=== PATIENT | male | born 1950 | race Caucasian/White ===

== ENCOUNTER 2020-10-28 09:39 | Inpatient (IN) ==
[2020-10-28] MEDS ORDERED: ASPIRIN CHEW 324 MG PO STA (09:44)
[2020-10-28 10:18] LABS: Basophils # (auto) 0.01 K/uL (0-0.2); Basophils % (auto) 0.1 %; Eosinophils # (auto) 0.01 K/uL (0-0.5); Eosinophils % (auto) 0.1 %; Hematocrit (blood only) 46.3 % (42-52); Hemoglobin 16.3 g/dL (14.0-18.0); Immature Granulocytes % (auto) 0.8 %; Lymphocytes # (auto) 1.14 K/uL (1.2-3.4); Mean Corpuscular Hgb Conc 35.2 g/dL (32-36); Mean Corpuscular Volume 96.5 fL (80-100); Mean Platelet Volume 11.5 fL (7.4-10.4); Monocytes # (auto) 0.39 K/uL (0.11-0.59); Monocytes % (auto) 3.1 %; Neutrophils # (auto) 11.07 K/uL (1.4-6.5); Neutrophils % (auto) 86.9 %; Nucleated RBC # (auto) 0.03 K/uL (0-0); Nucleated RBC % (auto) 0.2 %; Platelet Count 187 K/uL (130-400); RDW Coefficient of Variation 15.1 % (11.5-14.5); White Blood Count 12.72 K/uL (4.8-10.8)
[2020-10-28 10:21] LABS: Base Excess VBG 5.8 mEq/L; Oxygen Saturation VBG 70.4 %; pH VBG 7.45 (7.36-7.41)
[2020-10-28 10:36] LABS: BUN Creatinine Ratio 21.1 (10-20); Calcium 8.3 mg/dl (8.5-10.1); Creatinine Clr Calc Pharmacy 44.6 ml/min; Est GFR (African American) 54.3; Est GFR (Non-African American) 46.9; Potassium 3.7 mmol/L (3.5-5.1)
[2020-10-28 10:43] LABS: Troponin I 0.058 ng/ml (0-0.045)
--- NOTE | 2020-10-28 10:46 | XRay Report ---
XR chest 1V portable CLINICAL HISTORY: Chest pain. COMPARISON STUDY: No previous studies for comparison. FINDINGS: A left pacer/AICD is in place. Cardiac size is at the upper limits of normal. There is no p neumothorax. Small right pleural effusion is noted. Right basilar airspace opacity is present. There is pulmonary vascular congestion with suspected mild pulmonary edema. Old left rib fractures are pres ent. IMPRESSION: 1. Mild interstitial pulmonary edema. 2. Small right pleural effusion with right basilar opacity which could reflect pneumonia or atelectas is. Radiographic follow up to ensure resolution is recommended. ACT 112: Negative or not required by law. Electronically signed by: Jeff Dennis M.D. 10/28/2020 10:45 AM
[2020-10-28 12:20] LABS: Influenza A virus by PCR Negative (Neg); Influenza B virus by PCR Negative (Neg); RSV by PCR Negative (Neg); SARS CoV2 RNA(COVID-19) InHosp NEGATIVE (Negative)
--- NOTE | 2020-10-28 12:44 | History & Physical Report ---
Date of Service October 28, 2020 Assessment & Plan (1) Acute on chronic systolic heart failure: By report he has depressed EF but I cannot find any echo in the EMR. Echo ordered for am. Received IV lasix 80mg IV x 1 and 40mg PO lasix x 1 at [facility] prior to transfer here. Has had COPIOUS diuresis since then. Will start lasix 40mg IV BID with first dose at 1700 today. Daily BMP. Check dig level. Cont BB - Dr Hernandez's note from September suggested changing metoprolol tartrate to succinate -- can do that during this stay. Cont RODRIGUEZ. Cont aldactone. (2) Atrial fibrillation: Is in NSR at presentation. Dr Hernandez's note from September advised lowering amiodarone to 100mg from 200mg - will change that this admission. Cont warfarin with daily INR. Cont dig - check level. Cont metoprolol. (3) Ischemic cardiomyopathy: h/o acute MIs on at least 2 occasions - perhaps more - leading to ischemic cardiomyopathy. check echo for LV function & wall motion. (4) Coronary artery disease: multiple NSTEMIs in past. cont BB, RODRIGUEZ, statin. uncertain why he is not on aspirin - will start asa 81mg daily. (5) Automatic implantable cardioverter-defibrillator in situ: device interrogated in September [address] Hernandez. battery life is nearing end. will need referral back to Dr Hernandez to exchange this operatively. (6) Supraclavicular lymphadenopathy: right. CT chest ordered due to significant smoking history and the lymph node -- lung cancer seen in RLL (very large mass). see below. (7) Lung mass: most certainly this is cancer. he will need tissue for diagnosis. consults to be placed to Dr López - oncology; Dr Leon - pulmonary. later in the day today I went to the bedside and discussed CT findings with him. he is aware of this mass. (8) Mixed hyperlipidemia: statin (9) COPD (chronic obstructive pulmonary disease): no exacerbation at this time cont inhalers (10) History of coronary artery stent placement: noted details uncertain however - old records not available (11) Type 2 diabetes mellitus: a1c >9% hold regular insulin -- change to novolog start lantus 10 units BID - suspect we will need to adjust frequently (12) DVT prophylaxis: coumadin, but INR is subtherapeutic uncertain how long he has been <2 given the likely lung ca and LE edema check dopplers to r/o DVT will give load of coumadin 4mg x 1 this afternoon INR tomorrow redose coumadin tomorrow History of Present Illness Chief Complaint: dyspnea Primary Care Provider: [facility] 70yo male with h/o CHF/ischemic cardiomyopathy, CAD s/p multiple MIs with stents, AICD status, and COVID 19 in 05/2020 - presents from [facility] with worsening dyspnea x 2 months, and especially worse in the last 3 weeks. He has noted swelling in his abdomen and feet over the last 2 weeks. He has gained significant weight gain - 165 pounds to 189 pounds over 4-6 months. He had significant PND and orthopnea last night. He went to the [facility] this morning about 8am and was given IV lasix 80mg at that time. He also had oral lasix 40mg (usual dose) this am. He has had copious urine output since this am following the lasix, and does feel better. No cough. Appetite has been normal. He is not sure when his last echo was or the name of his grain elevator motor starter. Records show he did see Dr Hernandez a few weeks ago in EP clinic for device interrogation. Allergies Allergy/AdvReac Type Severity Reaction Status Date / Time No Known Allergies Allergy Verified 10/28/20 10:50 Home Medications Medication Instructions Recorded Confirmed Type amiodarone 200 mg tablet 200 mg PO DAILY 09/22/20 10/28/20 History atorvastatin 80 mg tablet 80 mg PO DAILY 09/22/20 10/28/20 History ciclesonide 160 mcg/actuation 1 puff INHALATION Q12H 09/22/20 10/28/20 History aerosol inhaler digoxin 125 mcg (0.125 mg) tablet 125 mcg PO DAILY 09/22/20 10/28/20 History furosemide 40 mg tablet 40 mg PO BID 09/22/20 10/28/20 History levalbuterol tartrate 45 2 inh INHALATION Q6H 09/22/20 10/28/20 History mcg/actuation aerosol inhaler lisinopril 10 mg tablet 10 mg PO DAILY 09/22/20 10/28/20 History metoprolol tartrate 25 mg tablet 25 mg PO BID 09/22/20 10/28/20 History nortriptyline 50 mg capsule 50 mg PO HS 09/22/20 10/28/20 History spironolactone 25 mg tablet 25 mg PO DAILY 09/22/20 10/28/20 History warfarin 2 mg tablet 2 mg PO HS 09/22/20 10/28/20 History docusate sodium 100 mg tablet 100 mg PO DAILY 09/30/20 10/28/20 History insulin regular human [Novolin R 1 sliding scale dose SUBCUT 10/28/20 10/28/20 History Regular U-100 Insuln] USEASDIRECTD Past Med/Surg History Medical History Atrial fibrillation Automatic implantable cardioverter-defibrillator in situ Medtronic single-chamber. Implanted 2012 COPD (chronic obstructive pulmonary disease) Coronary artery disease Ischemic cardiomyopathy Mixed hyperlipidemia Type 2 diabetes mellitus dx 2020 Surgical History History of coronary artery stent placement Family History Uncle Myocardial infarction Father Myocardial infarction Mother Breast cancer Cervical cancer Social History Smoking Status: Former smoker Age Quit Using Tobacco: 66; packs per day: 1; Cigarettes Per Day: 1 PPD; Smoking End Date: 4 years ago quit for the most recent time.; Second Hand Exposure: No; Do You Dip or Chew Tobacco: No; Tobacco Cessation Education Requested by Patient: No Hx Alcohol Use: Yes Alcohol type: hard liquor Alcohol type Comment: in the past before [facility] Hx Substance Use: Yes Non-Prescribed Medications: Marijuana Last Used Substance: Days (ago) Last Used Substance Other:: 4+ years ago last use. Preferred Language: Danish Communication Ability: Effective Unit Operator Required: No Beliefs That Will Affect Care: None marital status: Current Living Situation: Other Current Living Situation Comment: [facility]. 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 How many Children do You have: 3 How many Children do You have Comment: 1 Other Information That Helps Us Care for You: No Feels Safe at Home: Yes Safety Concerns: Feels Safe At This Time Assistive Devices: None Review of Systems Constitutional: + fatigue and + weight gain; no fever and no anorexia Eyes: + worsening vision (blurry ) Ear, Nose, Mouth, Throat: no dysphagia Respiratory: + dyspnea on exertion; no cough Cardiovascular: + chest pain (last episode 1 month ago ), + orthopnea, + paroxysmal nocturnal dyspnea and + edema Gastrointestinal: + bloating, + nausea (for 2 weeks ) and + diarrhea/loose stools (intermittent ); no vomiting Genitourinary: no difficulty urinating Musculoskeletal: no back pain and no neck pain Integumentary: + rash (athletes foot ) Neurologic: + paresthesia (neuropathy of feet ) Psychiatric: no depression Endocrine: BSGs high - 200-400 Hematologic / Lymphatic: no easy bleeding Physical Exam 2 Constitutional: no acute distress and no altered mental status Eyes: PERRL ENMT: external ear and nose normal, oropharynx normal Neck: large right-sided supraclavicular lymph node palpable; no thyroidmegaly Respiratory: no respiratory distress Auscultation: + diminished lung sounds (Both bases, worse on right) and + crackles; no wheezes Cardiovascular: Rate/Rhythm: regular rate and regular rhythm Heart Sounds: normal S1 and normal S2 Vessels: + JVD, posterior tibial pulses present and dorsalis pedis pulses present Extremities: + edema (1+ b/l) Gastrointestinal (Abdomen): normal bowel sounds, soft, nontender, no hepatosplenomegaly Musculoskeletal: Extremities: + clubbing Skin: no rashes, warm and dry Neurologic: deep tendon reflexes 2+ bilaterally and moves all extremities Psychiatric: A+Ox3, euthymic affect Lymphatic: + subclavicular lymphadenopathy (RIGHT - at least 2cm in size, firm to touch) Results & Data Results & Data ([facility]) Vital Signs (Past 12 Hours) Vital Signs Temp Pulse Pulse Resp BP BP Pulse Ox 10/28/20 12:40 66 24 158/81 H 92 10/28/20 11:08 72 20 157/80 H 93 10/28/20 09:44 36.8 C 76 22 143/89 H 91 Laboratory Results Laboratory Results - last 24 hr 10/28/20 10/28/20 10/28/20 10:01 10:01 10:01 WBC 12.72 H RBC 4.80 Hgb 16.3 Hct 46.3 MCV 96.5 MCH 34.0 MCHC 35.2 RDW Std Deviation 53.0 H RDW Coeff of Sajan 15.1 H Plt Count 187 MPV 11.5 H Immature Gran % (Auto) 0.8 Neut % (Auto) 86.9 Lymph % (Auto) 9.0 [place]isco[place] % (Auto) 3.1 Eos % (Auto) 0.1 Baso % (Auto) 0.1 Neut # (Auto) 11.07 H Lymph # (Auto) 1.14 L [place] # (Auto) 0.39 Eos # (Auto) 0.01 Baso # (Auto) 0.01 Immature Gran # (Auto) 0.10 H Absolute Nucleated RBC 0.03 H Nucleated RBC % (auto) 0.2 PT INR VBG pH 7.45 H VBG pCO2 46 VBG pO2 38 VBG HCO3 31 VBG O2 Saturation 70.4 VBG Base Excess 5.8 Barometric Pressure 733.7 Sodium 137 Potassium 3.7 Chloride 102 Carbon Dioxide 29 Anion Gap 6.0 BUN 32 H Creatinine 1.49 H Est Cr Clr Drug Dosing 44.6 Est GFR ( Amer) 54.3 Est GFR (Non-Af Amer) 46.9 BUN/Creatinine Ratio 21.1 H Glucose 214 H POC Glucose Estimat Average Glucose Hemoglobin A1c Calcium 8.3 L Magnesium Troponin I 0.058 H* NT-Pro-B Natriuret Pep 4683 H TSH Free T4 Digoxin COVID-19 Eval Order SARS-CoV-2 (PCR) Influenza Type A (PCR) Influenza Type B (PCR) RSV (RT-PCR) 10/28/20 10/28/20 10/28/20 10:01 10:01 10:01 WBC RBC Hgb Hct MCV MCH MCHC RDW Std Deviation RDW Coeff of Sajan Plt Count MPV Immature Gran % (Auto) Neut % (Auto) Lymph % (Auto) [place] % (Auto) Eos % (Auto) Baso % (Auto) Neut # (Auto) Lymph # (Auto) [place] # (Auto) Eos # (Auto) Baso # (Auto) Immature Gran # (Auto) Absolute Nucleated RBC Nucleated RBC % (auto) PT 13.9 H INR 1.4 H VBG pH VBG pCO2 VBG pO2 VBG HCO3 VBG O2 Saturation VBG Base Excess Barometric Pressure Sodium Potassium Chloride Carbon Dioxide Anion Gap BUN Creatinine Est Cr Clr Drug Dosing Est GFR ( Amer) Est GFR (Non-Af Amer) BUN/Creatinine Ratio Glucose POC Glucose Estimat Average Glucose 220 Hemoglobin A1c 9.3 H Calcium Magnesium 2.4 Troponin I NT-Pro-B Natriuret Pep TSH 0.195 L Free T4 1.59 Digoxin COVID-19 Eval Order SARS-CoV-2 (PCR) Influenza Type A (PCR) Influenza Type B (PCR) RSV (RT-PCR) 10/28/20 10/28/20 10/28/20 11:23 11:23 14:00 WBC RBC Hgb Hct MCV MCH MCHC RDW Std Deviation RDW Coeff of Sajan Plt Count MPV Immature Gran % (Auto) Neut % (Auto) Lymph % (Auto) [place] % (Auto) Eos % (Auto) Baso % (Auto) Neut # (Auto) Lymph # (Auto) [place] # (Auto) Eos # (Auto) Baso # (Auto) Immature Gran # (Auto) Absolute Nucleated RBC Nucleated RBC % (auto) PT INR VBG pH VBG pCO2 VBG pO2 VBG HCO3 VBG O2 Saturation VBG Base Excess Barometric Pressure Sodium Potassium Chloride Carbon Dioxide Anion Gap BUN Creatinine Est Cr Clr Drug Dosing Est GFR ( Amer) Est GFR (Non-Af Amer) BUN/Creatinine Ratio Glucose POC Glucose Estimat Average Glucose Hemoglobin A1c Calcium Magnesium Troponin I NT-Pro-B Natriuret Pep TSH Free T4 Digoxin 1.1 COVID-19 Eval Order CovFluRsv at [facility] SARS-CoV-2 (PCR) NEGATIVE Influenza Type A (PCR) Negative Influenza Type B (PCR) Negative RSV (RT-PCR) Negative 10/28/20 10/28/20 10/29/20 16:51 20:16 07:41 WBC RBC Hgb Hct MCV MCH MCHC RDW Std Deviation RDW Coeff of Sajan Plt Count MPV Immature Gran % (Auto) Neut % (Auto) Lymph % (Auto) [place] % (Auto) Eos % (Auto) Baso % (Auto) Neut # (Auto) Lymph # (Auto) [place] # (Auto) Eos # (Auto) Baso # (Auto) Immature Gran # (Auto) Absolute Nucleated RBC Nucleated RBC % (auto) PT INR VBG pH VBG pCO2 VBG pO2 VBG HCO3 VBG O2 Saturation VBG Base Excess Barometric Pressure Sodium Potassium Chloride Carbon Dioxide Anion Gap BUN Creatinine Est Cr Clr Drug Dosing Est GFR ( Amer) Est GFR (Non-Af Amer) BUN/Creatinine Ratio Glucose POC Glucose 190 H 227 H 217 H Estimat Average Glucose Hemoglobin A1c Calcium Magnesium Troponin I NT-Pro-B Natriuret Pep TSH Free T4 Digoxin COVID-19 Eval Order SARS-CoV-2 (PCR) Influenza Type A (PCR) Influenza Type B (PCR) RSV (RT-PCR) 10/29/20 10/29/20 07:54 07:54 WBC RBC Hgb Hct MCV MCH MCHC RDW Std Deviation RDW Coeff of Sajan Plt Count MPV Immature Gran % (Auto) Neut % (Auto) Lymph % (Auto) [place] % (Auto) Eos % (Auto) Baso % (Auto) Neut # (Auto) Lymph # (Auto) [place]iscoe # (Auto) Eos # (Auto) Baso # (Auto) Immature Gran # (Auto) Absolute Nucleated RBC Nucleated RBC % (auto) PT Pending INR Pending VBG pH VBG pCO2 VBG pO2 VBG HCO3 VBG O2 Saturation VBG Base Excess Barometric Pressure Sodium Pending Potassium Pending Chloride Pending Carbon Dioxide Pending Anion Gap Pending BUN Pending Creatinine Pending Est Cr Clr Drug Dosing Pending Est GFR ( Amer) Pending Est GFR (Non-Af Amer) Pending BUN/Creatinine Ratio Pending Glucose Pending POC Glucose Estimat Average Glucose Hemoglobin A1c Calcium Pending Magnesium Troponin I NT-Pro-B Natriuret Pep TSH Free T4 Digoxin COVID-19 Eval Order SARS-CoV-2 (PCR) Influenza Type A (PCR) Influenza Type B (PCR) RSV (RT-PCR) Diagnostic Findings Chest X-Ray 10/28/20 09:44 XR chest 1V portable CLINICAL HISTORY: Chest pain. COMPARISON STUDY: No previous studies for comparison. FINDINGS: A left pacer/AICD is in place. Cardiac size is at the upper limits of normal. There is no pneumothorax. Small right pleural effusion is noted. Right basilar airspace opacity is present. There is pulmonary vascular congestion with suspected mild pulmonary edema. Old left rib fractures are present. IMPRESSION: 1. Mild interstitial pulmonary edema. 2. Small right pleural effusion with right basilar opacity which could reflect pneumonia or atelectasis. Radiographic follow up to ensure resolution is recommended. ACT 112: Negative or not required by law. Electronically signed by: Jeff Dennis M.D. 10/28/2020 10:[address] 10/28/20 16:08 CT chest diagnostic wo con CT DOSE: 346.07 mGy.cm CLINICAL HISTORY: 70 years-old Male with supraclavicular LAD; COPD; eval nodules. Chronic shortness of breath with pulmonary nodules. TECHNIQUE: Multiaxial CT images of the chest were performed without contrast. A dose lowering technique was utilized adhering to the principles of ALARA. COMPARISON: Chest radiograph of same day. FINDINGS: Unremarkable thyroid. Mild cardiomegaly. Extensive ruby coronary artery calcifications. Left subclavian pacer. No thoracic aortic aneurysm. Partially imaged pathologically enlarged right supraclavicular lymph nodes measure up to 2.4 x 2.2 cm. Pathologically enlarged mediastinal lymph nodes include conglomerate subcarinal adenopathy measuring up to 6.1 x 3.3 x 5.2 cm. Right hilar adenopathy measures up to 3.3 x 1.9 cm. Pathologic lymph node measuring up to 9 mm is noted abutting the left pericardial border on image 228. Innumerable lesions throughout the liver compatible with hepatic metastasis measuring up to 4.4 cm within the right hepatic lobe. There are heterogeneous masses of the bilateral kidneys measuring up to 4.8 cm on the right. 4.6 cm mass of the abdominal left upper quadrant may be associated with the left kidney. Bilateral adrenal gland masses measuring up to 2.3 cm on the left suggest adrenal metastasis. Pathologic 1.9 x 1.5 cm lymph node adjacent to the proximal stomach on image 251. Gynecomastia. Healed chronic left-sided rib fractures. Degenerative changes of the shoulders and spine. Mild superior endplate compression deformities noted at the T1, T4-T6 without retropulsion. Small left and small to moderate right pleural effusions with bibasilar de pendent consolidation. No pneumothorax. Mild emphysema. Pulmonary vascular congestion with mild intralobular septal thickening. Mass of the right lower lobe, 5.6 x 7.8 x 6.7 cm. There is associated opacification of the adjacent right lower lobe bronchi suggestive of tumor extension. Numerous satellite nodules of the right lower lobe measure up to 10 mm. Asymmetric groundglass opacities with intralobular septal thickening of the right lower lobe. Central airways are patent. IMPRESSION: 1. 7.8 cm mass of the right lower lobe suggests primary bronchogenic carcinoma and demonstrates apparent right lower lobe endobronchial component. 2. Cardiomegaly with pulmonary edema, small left and small to moderate right pleural effusions. 3. Extensive metastatic disease includes satellite right lower lobe pulmonary metastasis, right supraclavicular, mediastinal, hilar and upper abdominal adenopathy, hepatic, adrenal, and presumed renal metastasis. 4. Bibasilar atelectasis with findings suggestive of postobstructive pneumonitis of the right lower lobe. 5. Age-indeterminate thoracic compression deformities as above, most pronounced at T6. No suspicious bone lesions identified. 6. Additional findings as above. ACT 112: Negative or not required by law. Dictated: 10/28/2020 5:01 PM Transcribed: 10/28/2020 5:54 PM [facility] [id number] [email or web address] Electronically signed by: Herbie Pisano M.D. 10/28/2020 6:05 PM Venous Doppler Study 10/29/20 00:00 US venous doppler LE BI CLINICAL HISTORY: Leg edema. LUNG CARCINOMA COMPARISON STUDY: No previous studies for comparison. FINDINGS: Real-time and color flow Doppler imaging were performed. Flow was seen within the femoral, popliteal and calf veins with no intraluminal thrombus demonstrated. The saphenous vein is patent. There is a complex right popliteal cyst measuring 54 x 16 x 9 mm. IMPRESSION: No evidence of lower extremity DVT. ACT 112: Negative or not required by law. Electronically signed by: Garland Singh M.D. 10/29/2020 7:00 AM EKG - NSR, no ST changes Code Status & VTE Plan Code Status conditioning - defibrillation is acceptable; no other resuscitative efforts - no intubation/mech ventilation; no chest compressions VTE Prophylaxis Plan VTE Prophylaxis will be ordered: Yes PG Care Time/CCT Total # of Minutes Spent Total Time Spent with Patient: Total time spent is greater than 50% in coordination of care (as documented) at patient's floor/unit and/or counseling patient: Coding Level of Care Code 26663 Initial Inpt Care Lvl 3 Diagnoses Acute on chronic systolic heart failure I50.23 Atrial fibrillation I48.91 Ischemic cardiomyopathy I25.5 Coronary artery disease I25.10 Automatic implantable cardioverter-defibrillator in situ Z95.810 Supraclavicular lymphadenopathy R59.0 Lung mass R91.8 Mixed hyperlipidemia E78.2 COPD (chronic obstructive pulmonary disease) J44.9 History of coronary artery stent placement Z95.5 Type 2 diabetes mellitus E11.9 DVT prophylaxis Z29.9
[2020-10-28 13:34] LABS: INR 1.4 (0.9-1.1); Prothrombin Time 13.9 Seconds (9.0-12.0)
[2020-10-28 13:56] LABS: Magnesium 2.4 mg/dl (1.8-2.4); Thyroid Stimulating Hormone 0.195 uIu/ml (0.300-4.500)
[2020-10-28 14:03] LABS: Estimated Average Glucose 220 mg/dl; Hemoglobin A1C 9.3 % (4.5-5.6)
[2020-10-28 14:10] LABS: T4 Free Thyroxine 1.59 ng/dl (0.8-1.6)
--- NOTE | 2020-10-28 14:41 | Electrocardiogram Report ---
Test Reason : Blood Pressure : / mmHG Vent. Rate : 065 BPM Atrial Rate : 065 BPM P-R Int : 196 ms QRS Dur : 096 ms QT Int : 438 ms P-R-T Axes : 046 040 007 degrees QTc Int : 455 ms Poor data quality, interpretation may be adversely affected Normal sinus rhythm Anterolateral infarct , age undetermined Abnormal ECG No previous ECGs available Confirmed by Garrett Williamson ([id number]) on 10/28/2020 2:41:48 PM Referred By: [facility] Confirmed By:Garrett Williamson
[2020-10-28] MEDS ORDERED: ONDANSETRON INJ 2 MG/ML 2 ML VIAL IV PRN (16:08)
[2020-10-28] MEDS ORDERED: NITROGLYCERIN SL 0.4 MG/TAB TAB SL PRN (16:08)
[2020-10-28] MEDS ORDERED: MoRPHine SULFATE 2 MG/ML CARP IV PRN (16:08)
[2020-10-28] MEDS ORDERED: ACETAMINOPHEN 325 MG TAB PO PRN (16:08)
[2020-10-28] MEDS ORDERED: WARFARIN SOD 4 MG TAB PO ONE (16:45)
[2020-10-28] MEDS ORDERED: BUMETANIDE 2 MG in SYRINGE 0 ML IV SCH (17:00)
[2020-10-28] MEDS: FUROSEMIDE 40 MG in SYRINGE 0 ML IV SCH (17:26)
[2020-10-28] MEDS: INSULIN ASPART 100 UNITS/ML 3 ML PEN SC SCH ×2 (17:27→20:29)
[2020-10-28] MEDS ORDERED: DEXTROSE 50% 50 ML SYRINGE IV PRN (17:30)
[2020-10-28] MEDS ORDERED: GLUCOSE 10 TABS/TUBE PO PRN (17:30)
[2020-10-28] MEDS ORDERED: GLUCOSE 40% GEL 15 GM TUBE PO PRN (17:30)
[2020-10-28] MEDS ORDERED: CARBOHYDRATES FOR HYPOGLYCEMIA PO PRN (17:30)
[2020-10-28] MEDS ORDERED: GLUCAGON FOR INJ 1 MG VIAL IM PRN (17:30)
--- NOTE | 2020-10-28 18:06 | CT Scan Report ---
CT chest diagnostic wo con CT DOSE: 346.07 mGy.cm CLINICAL HISTORY: 70 years-old Male with supraclavicular LAD; COPD; eval nodules. Chronic shortness of breath with pulmonary nodules. TECHNIQUE: Multiaxial CT images of the chest were performed without contrast. A dose lowering techni que was utilized adhering to the principles of ALARA. COMPARISON: Chest radiograph of same day. FINDINGS: Unremarkable thyroid. Mild cardiomegaly. Extensive qawalangin coronary artery calcifications. L eft subclavian pacer. No thoracic aortic aneurysm. Partially imaged pathologically enlarged right sup raclavicular lymph nodes measure up to 2.4 x 2.2 cm. Pathologically enlarged mediastinal lymph nodes include conglomerate subcarinal adenopathy measuring up to 6.1 x 3.3 x 5.2 cm. Right hilar adenopathy measures up to 3.3 x 1.9 cm. Pathologic lymph node measuring up to 9 mm is noted abutting the left p ericardial border on image 228. Innumerable lesions throughout the liver compatible with hepatic meta stasis measuring up to 4.4 cm within the right hepatic lobe. There are heterogeneous masses of the bi lateral kidneys measuring up to 4.8 cm on the right. 4.6 cm mass of the abdominal left upper quadrant may be associated with the left kidney. Bilateral adrenal gland masses measuring up to 2.3 cm on the left suggest adrenal metastasis. Pathologic 1.9 x 1.5 cm lymph node adjacent to the proximal stomach on image 251. Gynecomastia. Healed chronic left-sided rib fractures. Degenerative changes of the [place] and spine. Mild superior endplate compression deformities noted at the T1, T4-T6 without retro pulsion. Small left and small to moderate right pleural effusions with bibasilar dependent consolidation. No p neumothorax. Mild emphysema. Pulmonary vascular congestion with mild intralobular septal thickening. Mass of the right lower lobe, 5.6 x 7.8 x 6.7 cm. There is associated opacification of the adjacent r ight lower lobe bronchi suggestive of tumor extension. Numerous satellite nodules of the right lower lobe measure up to 10 mm. Asymmetric groundglass opacities with intralobular septal thickening of the right lower lobe. Central airways are patent. IMPRESSION: 1. 7.8 cm mass of the right lower lobe suggests primary bronchogenic carcinoma and demonstrates appar ent right lower lobe endobronchial component. 2. Cardiomegaly with pulmonary edema, small left and small to moderate right pleural effusions. 3. Extensive metastatic disease includes satellite right lower lobe pulmonary metastasis, right supra clavicular, mediastinal, hilar and upper abdominal adenopathy, hepatic, adrenal, and presumed renal m etastasis. 4. Bibasilar atelectasis with findings suggestive of postobstructive pneumonitis of the right lower l obe. 5. Age-indeterminate thoracic compression deformities as above, most pronounced at T6. No suspicious bone lesions identified. 6. Additional findings as above. ACT 112: Negative or not required by law. Dictated: 10/28/2020 5:01 PM Transcribed: 10/28/2020 5:54 PM [facility] [id number] [email or web address] Electronically signed by: Herbie Pisano M.D. 10/28/2020 6:05 PM
--- NOTE | 2020-10-28 18:37 | Emergency Department Note ---
History of Present Illness General Chief complaint: Shortness of Breath/Dyspnea Stated complaint: SOB Time Seen by Provider: 10/28/20 09:43 History of Present Illness Provider complaint: Shortness of breath Onset (ago): month(s) 1 Maximum Pain Intensity: 0 Current Pain Intensity: 0 Associated symptoms: + shortness of breath; no confusion, no chest pain, no cough, no fever/chills, no headaches and no nausea/vomiting 70-year-old male prisoner presents emergency department with shortness of breath. Patient symptoms were gone for the last month. He states his symptoms worse with exertion. He denies any chest pain. Patient denies any fevers. Patient states he had COVID-19 in May. Patient does report nausea. Guards reports the patient is on Lasix 40 mg daily. Patient did go to the [facility] and was given an extra dose of Lasix 80 mg IV push in the [facility]. Home Medications Medication Instructions Recorded Confirmed Type amiodarone 200 mg tablet 200 mg PO DAILY 09/22/20 10/28/20 History atorvastatin 80 mg tablet 80 mg PO DAILY 09/22/20 10/28/20 History ciclesonide 160 mcg/actuation 1 puff INHALATION Q12H 09/22/20 10/28/20 History aerosol inhaler digoxin 125 mcg (0.125 mg) tablet 125 mcg PO DAILY 09/22/20 10/28/20 History furosemide 40 mg tablet 40 mg PO BID 09/22/20 10/28/20 History levalbuterol tartrate 45 2 inh INHALATION Q6H 09/22/20 10/28/20 History mcg/actuation aerosol inhaler lisinopril 10 mg tablet 10 mg PO DAILY 09/22/20 10/28/20 History metoprolol tartrate 25 mg tablet 25 mg PO BID 09/22/20 10/28/20 History nortriptyline 50 mg capsule 50 mg PO HS 09/22/20 10/28/20 History spironolactone 25 mg tablet 25 mg PO DAILY 09/22/20 10/28/20 History warfarin 2 mg tablet 2 mg PO HS 09/22/20 10/28/20 History docusate sodium 100 mg tablet 100 mg PO DAILY 09/30/20 10/28/20 History insulin regular human [Novolin R 1 sliding scale dose SUBCUT 10/28/20 10/28/20 History Regular U-100 Insuln] USEASDIRECTD Allergies Allergy/AdvReac Type Severity Reaction Status Date / Time No Known Allergies Allergy Verified 10/28/20 10:50 Past Med/Surg History Medical History Atrial fibrillation Automatic implantable cardioverter-defibrillator in situ Medtronic single-chamber. Implanted 2012 COPD (chronic obstructive pulmonary disease) Coronary artery disease Ischemic cardiomyopathy Mixed hyperlipidemia Type 2 diabetes mellitus dx 2020 Surgical History History of coronary artery stent placement Family History Uncle Myocardial infarction Father Myocardial infarction Mother Breast cancer Cervical cancer Social History Smoking Status: Former smoker Age Quit Using Tobacco: 66; packs per day: 1; Cigarettes Per Day: 1 PPD; Smoking End Date: 4 years ago quit for the most recent time.; Second Hand Exposure: No; Do You Dip or Chew Tobacco: No; Tobacco Cessation Education Requested by Patient: No Hx Alcohol Use: Yes Alcohol type: hard liquor Alcohol type Comment: in the past before shelter Hx Substance Use: Yes Non-Prescribed Medications: Marijuana Last Used Substance: Days (ago) Last Used Substance Other:: 4+ years ago last use. Preferred Language: French Communication Ability: Effective Art Consultant Required: No Beliefs That Will Affect Care: None marital status: Current Living Situation: Other Current Living Situation Comment: [facility]. 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 How many Children do You have: 3 How many Children do You have Comment: 1 Other Information That Helps Us Care for You: No Feels Safe at Home: Yes Safety Concerns: Feels Safe At This Time Assistive Devices: None Review of Systems A total of 10 systems reviewed and were otherwise negative Physical Exam Vital Signs Vital Signs - 24 hr 10/28/20 09:42 10/28/20 09:44 10/28/20 10:08 Temperature 36.8 C Temperature Source Oral Pulse Rate 76 65 Pulse Rate [Left Finger] Pulse Rate from SpO2 Sensor Respiratory Rate 22 14 Respiratory Effort / Characteristics Respiratory Depth Blood Pressure 143/89 H 143/89 H Blood Pressure [Left Arm] Blood Pressure Mean 107 107 Blood Pressure Mean [Left Arm] Pulse Oximetry 91 Oxygen Delivery Method Room Air Sepsis Recent Fever Within 48 Hours No Sepsis New/Unexplained Change in Mental Status No Sepsis Action Taken by Nursing No Action Required 10/28/20 10:30 10/28/20 10:57 10/28/20 11:00 Temperature Temperature Source Pulse Rate 65 69 Pulse Rate [Left Finger] Pulse Rate from SpO2 Sensor 69 Respiratory Rate 16 16 Respiratory Effort / Characteristics Respiratory Depth Blood Pressure 157/80 H Blood Pressure [Left Arm] Blood Pressure Mean 105 Blood Pressure Mean [Left Arm] Pulse Oximetry 93 Oxygen Delivery Method Room Air Sepsis Recent Fever Within 48 Hours Sepsis New/Unexplained Change in Mental Status Sepsis Action Taken by Nursing 10/28/20 11:01 10/28/20 11:08 10/28/20 11:30 Temperature Temperature Source Pulse Rate 67 63 Pulse Rate [Left Finger] 72 Pulse Rate from SpO2 Sensor 67 63 Respiratory Rate 21 20 18 Respiratory Effort / Characteristics Non-Labored Respiratory Depth Normal Blood Pressure 146/79 H Blood Pressure [Left Arm] 157/80 H Blood Pressure Mean 101 Blood Pressure Mean [Left Arm] 105 Pulse Oximetry 93 93 89 L Oxygen Delivery Method Room Air Sepsis Recent Fever Within 48 Hours Sepsis New/Unexplained Change in Mental Status Sepsis Action Taken by Nursing 10/28/20 12:00 10/28/20 12:01 10/28/20 12:30 Temperature Temperature Source Pulse Rate 61 62 59 L Pulse Rate [Left Finger] Pulse Rate from SpO2 Sensor 61 62 59 L Respiratory Rate 19 17 19 Respiratory Effort / Characteristics Respiratory Depth Blood Pressure 141/82 H Blood Pressure [Left Arm] Blood Pressure Mean 101 Blood Pressure Mean [Left Arm] Pulse Oximetry 86 L 88 L 87 L Oxygen Delivery Method Sepsis Recent Fever Within 48 Hours Sepsis New/Unexplained Change in Mental Status Sepsis Action Taken by Nursing 10/28/20 12:31 10/28/20 12:40 10/28/20 12:41 Temperature Temperature Source Pulse Rate 61 66 Pulse Rate [Left Finger] 66 Pulse Rate from SpO2 Sensor 61 63 Respiratory Rate 20 24 17 Respiratory Effort / Characteristics Non-Labored Respiratory Depth Normal Blood Pressure 147/79 H 158/81 H Blood Pressure [Left Arm] 158/81 H Blood Pressure Mean 101 106 Blood Pressure Mean [Left Arm] 106 Pulse Oximetry 91 92 94 Oxygen Delivery Method Room Air Sepsis Recent Fever Within 48 Hours Sepsis New/Unexplained Change in Mental Status Sepsis Action Taken by Nursing 10/28/20 13:00 Temperature Temperature Source Pulse Rate 64 Pulse Rate [Left Finger] Pulse Rate from SpO2 Sensor 65 Respiratory Rate 13 Respiratory Effort / Characteristics Respiratory Depth Blood Pressure 129/69 Blood Pressure [Left Arm] Blood Pressure Mean 89 Blood Pressure Mean [Left Arm] Pulse Oximetry 93 Oxygen Delivery Method Sepsis Recent Fever Within 48 Hours Sepsis New/Unexplained Change in Mental Status Sepsis Action Taken by Nursing Physical Exam GENERAL: He is oriented to person, place, and time. He appears well-developed and well-nourished. He does not appear distressed. Patient in [facility]. HENT: Exam performed. - Head: Normocephalic and atraumatic. - Right Ear: External ear normal. No mastoid tenderness. - Left Ear: External ear normal. No mastoid tenderness. - Mouth/Throat: The oropharynx is clear and moist. No trismus in the jaw. No dental abscesses or uvula swelling. No oropharyngeal exudate or tonsillar abscesses. EYES: Conjunctivae and EOM are normal. Pupils are equal, round, and reactive to light. Right eye exhibits no discharge. Left eye exhibits no discharge. No scleral icterus. NECK: Normal range of motion. Neck supple. No JVD present. No spinous process tenderness present. No carotid bruit present. No rigidity. No tracheal deviation and normal range of motion present. No Brudzinski's sign and no Kernig's sign noted. CV: Normal rate, regular rhythm, normal heart sounds and intact distal pulses. There is no peripheral edema. Palpable radial pulses bue. PULM/CHEST: Rales at the bases bilaterally. - Chest Wall: He exhibits no tenderness. ABD: The abdomen is soft. Bowel sounds are normal. He has no distension. No mass is present. There is no tenderness. There is no rebound, no guarding, no Sommer's sign and no tenderness at McBurney's point. Rovsig negative. MUSC/SKEL: Normal range of motion. There is no peripheral edema, tenderness or deformity. LYMPH: No cervical adenopathy. NEURO: He is alert and oriented to person, place, and time. He has normal strength. No cranial nerve deficit or sensory deficit. Coordination and gait normal. GCS eye subscore is 4. GCS verbal subscore is 5. GCS motor subscore is 6. Cerebellar tests wnl. SKIN: Skin is warm and dry. He is not diaphoretic. PSYCH: He has a normal mood and affect. Behavior is normal. Judgment and thought content normal. Course Course 09: The patient was evaluated in room A12. A complete history and physical exam was performed Cardiac monitoring: An order was placed for continuous cardiac monitoring. The monitor shows a rate of 70 with sinus rhythm 1220: Vital signs stable. Imaging does show cardiomegaly with fluid overload. proBNP and troponin elevated. Patient not reporting any chest pain. Troponin elevation most likely due to CHF exacerbation. [facility]. Administered Medications Furosemide 40 mg/ Syringe 4 mls @ 4 mls/min IV [id number] SEVERIANO Stop: 11/27/20 16:59 Last Admin: 10/28/20 17:26 Dose: 4 mls/min Documented by: [id number] Insulin Aspart (Insulin Aspart 100 Units/Ml 3 Ml Pen) 0 units SC ACHS SEVERIANO Stop: 11/27/20 16:29 Last Admin: 10/28/20 17:27 Dose: 4 units Documented by: [id number] Cosigned by: [id number] Discontinued Medications Aspirin (Aspirin Chew 324 Mg) 324 mg PO NOW STA Stop: 10/28/20 09:45 Last Admin: 10/28/20 11:16 Dose: 324 mg Documented by: [id number] Warfarin Sodium (Warfarin Sod 4 Mg Tab) 4 mg PO ONE ONE Stop: 10/28/20 16:46 Last Admin: 10/28/20 17:26 Dose: 4 mg Documented by: [id number] Medical Decision Making Laboratory Data Result diagrams: 10/28/20 10:01 10/28/20 10:01 Lab Results 10/28/20 10/28/20 10/28/20 Range/Units 10:01 10:01 10:01 WBC 12.72 H (4.8-10.8) K/uL RBC 4.80 (4.7-6.1) M/uL Hgb 16.3 (14.0-18.0) g/dL Hct 46.3 (42-52) % MCV 96.5 (80-100) fL MCH 34.0 (25-34) pg MCHC 35.2 (32-36) g/dL RDW Std Deviation 53.0 H (36.4-46.3) fL RDW Coeff of Sajan 15.1 H (11.5-14.5) % Plt Count 187 (130-400) K/uL MPV 11.5 H (7.4-10.4) fL Immature Gran % (Auto) 0.8 % Neut % (Auto) 86.9 % Lymph % (Auto) 9.0 % [place] % (Auto) 3.1 % Eos % (Auto) 0.1 % Baso % (Auto) 0.1 % Neut # (Auto) 11.07 H (1.4-6.5) K/uL Lymph # (Auto) 1.14 L (1.2-3.4) K/uL [place] # (Auto) 0.39 (0.11-0.59) K/uL Eos # (Auto) 0.01 (0-0.5) K/uL Baso # (Auto) 0.01 (0-0.2) K/uL Immature Gran # (Auto) 0.10 H (0.00-0.02) K/uL Absolute Nucleated RBC 0.03 H (0-0) K/uL Nucleated RBC % (auto) 0.2 % PT (9.0-12.0) Seconds INR (0.9-1.1) VBG pH 7.45 H (7.36-7.41) VBG pCO2 46 (38-50) mmHg VBG pO2 38 mmHg VBG HCO3 31 mmol/L VBG O2 Saturation 70.4 % VBG Base Excess 5.8 mEq/L Barometric Pressure 733.7 mm/Hg Sodium 137 (136-145) mmol/L Potassium 3.7 (3.5-5.1) mmol/L Chloride 102 (98-107) mmol/L Carbon Dioxide 29 (21-32) mmol/L Anion Gap 6.0 (3-11) BUN 32 H (7-18) mg/dl Creatinine 1.49 H (0.6-1.4) mg/dl Est Cr Clr Drug Dosing 44.6 ml/min Est GFR ( Amer) 54.3 Est GFR (Non-Af Amer) 46.9 BUN/Creatinine Ratio 21.1 H (10-20) Glucose 214 H (70-99) mg/dl Estimat Average Glucose mg/dl Hemoglobin A1c (4.5-5.6) % Calcium 8.3 L (8.5-10.1) mg/dl Magnesium (1.8-2.4) mg/dl Troponin I 0.058 H* (0-0.045) ng/ml NT-Pro-B Natriuret Pep 4683 H (0-900) pg/ml TSH (0.300-4.500) uIu/ml Free T4 (0.8-1.6) ng/dl COVID-19 Eval Order SARS-CoV-2 (PCR) (Negative) Influenza Type A (PCR) (Neg) Influenza Type B (PCR) (Neg) RSV (RT-PCR) (Neg) 10/28/20 10/28/20 10/28/20 Range/Units 10:01 10:01 10:01 WBC (4.8-10.8) K/uL RBC (4.7-6.1) M/uL Hgb (14.0-18.0) g/dL Hct (42-52) % MCV (80-100) fL MCH (25-34) pg MCHC (32-36) g/dL RDW Std Deviation (36.4-46.3) fL RDW Coeff of Sajan (11.5-14.5) % Plt Count (130-400) K/uL MPV (7.4-10.4) fL Immature Gran % (Auto) % Neut % (Auto) % Lymph % (Auto) % [place] % (Auto) % Eos % (Auto) % Baso % (Auto) % Neut # (Auto) (1.4-6.5) K/uL Lymph # (Auto) (1.2-3.4) K/uL [place] # (Auto) (0.11-0.59) K/uL Eos # (Auto) (0-0.5) K/uL Baso # (Auto) (0-0.2) K/uL Immature Gran # (Auto) (0.00-0.02) K/uL Absolute Nucleated RBC (0-0) K/uL Nucleated RBC % (auto) % PT 13.9 H (9.0-12.0) Seconds INR 1.4 H (0.9-1.1) VBG pH (7.36-7.41) VBG pCO2 (38-50) mmHg VBG pO2 mmHg VBG HCO3 mmol/L VBG O2 Saturation % VBG Base Excess mEq/L Barometric Pressure mm/Hg Sodium (136-145) mmol/L Potassium (3.5-5.1) mmol/L Chloride (98-107) mmol/L Carbon Dioxide (21-32) mmol/L Anion Gap (3-11) BUN (7-18) mg/dl Creatinine (0.6-1.4) mg/dl Est Cr Clr Drug Dosing ml/min Est GFR ( Amer) Est GFR (Non-Af Amer) BUN/Creatinine Ratio (10-20) Glucose (70-99) mg/dl Estimat Average Glucose 220 mg/dl Hemoglobin A1c 9.3 H (4.5-5.6) % Calcium (8.5-10.1) mg/dl Magnesium 2.4 (1.8-2.4) mg/dl Troponin I (0-0.045) ng/ml NT-Pro-B Natriuret Pep (0-900) pg/ml TSH 0.195 L (0.300-4.500) uIu/ml Free T4 1.59 (0.8-1.6) ng/dl COVID-19 Eval Order SARS-CoV-2 (PCR) (Negative) Influenza Type A (PCR) (Neg) Influenza Type B (PCR) (Neg) RSV (RT-PCR) (Neg) 10/28/20 10/28/20 Range/Units 11:23 11:23 WBC (4.8-10.8) K/uL RBC (4.7-6.1) M/uL Hgb (14.0-18.0) g/dL Hct (42-52) % MCV (80-100) fL MCH (25-34) pg MCHC (32-36) g/dL RDW Std Deviation (36.4-46.3) fL RDW Coeff of Sajan (11.5-14.5) % Plt Count (130-400) K/uL MPV (7.4-10.4) fL Immature Gran % (Auto) % Neut % (Auto) % Lymph % (Auto) % [place] % (Auto) % Eos % (Auto) % Baso % (Auto) % Neut # (Auto) (1.4-6.5) K/uL Lymph # (Auto) (1.2-3.4) K/uL [place] # (Auto) (0.11-0.59) K/uL Eos # (Auto) (0-0.5) K/uL Baso # (Auto) (0-0.2) K/uL Immature Gran # (Auto) (0.00-0.02) K/uL Absolute Nucleated RBC (0-0) K/uL Nucleated RBC % (auto) % PT (9.0-12.0) Seconds INR (0.9-1.1) VBG pH (7.36-7.41) VBG pCO2 (38-50) mmHg VBG pO2 mmHg VBG HCO3 mmol/L VBG O2 Saturation % VBG Base Excess mEq/L Barometric Pressure mm/Hg Sodium (136-145) mmol/L Potassium (3.5-5.1) mmol/L Chloride (98-107) mmol/L Carbon Dioxide (21-32) mmol/L Anion Gap (3-11) BUN (7-18) mg/dl Creatinine (0.6-1.4) mg/dl Est Cr Clr Drug Dosing ml/min Est GFR ( Amer) Est GFR (Non-Af Amer) BUN/Creatinine Ratio (10-20) Glucose (70-99) mg/dl Estimat Average Glucose mg/dl Hemoglobin A1c (4.5-5.6) % Calcium (8.5-10.1) mg/dl Magnesium (1.8-2.4) mg/dl Troponin I (0-0.045) ng/ml NT-Pro-B Natriuret Pep (0-900) pg/ml TSH (0.300-4.500) uIu/ml Free T4 (0.8-1.6) ng/dl COVID-19 Eval Order CovFluRsv at [facility] SARS-CoV-2 (PCR) NEGATIVE (Negative) Influenza Type A (PCR) Negative (Neg) Influenza Type B (PCR) Negative (Neg) RSV (RT-PCR) Negative (Neg) Imaging Data Radiologist's Impression: Chest X-Ray 10/28/20 09:44 XR chest 1V portable CLINICAL HISTORY: Chest pain. COMPARISON STUDY: No previous studies for comparison. FINDINGS: A left pacer/AICD is in place. Cardiac size is at the upper limits of normal. There is no pneumothorax. Small right pleural effusion is noted. Right basilar airspace opacity is present. There is pulmonary vascular congestion with suspected mild pulmonary edema. Old left rib fractures are present. IMPRESSION: 1. Mild interstitial pulmonary edema. 2. Small right pleural effusion with right basilar opacity which could reflect pneumonia or atelectasis. Radiographic follow up to ensure resolution is recommended. ACT 112: Negative or not required by law. Electronically signed by: Jeff Dennis M.D. 10/28/2020 10:45 AM ECG Data Indication: + SOB/dyspnea Rate (beats per minute): 65 Rhythm: + normal sinus ECG Intervals/blocks: + Normal QRS, + Normal RI and + Normal QT-c ECG ST segments: + Normal ST segments MDM Narrative 0943: The patient was evaluated in room A12. A complete history and physical exam was performed Cardiac monitoring: An order was placed for continuous cardiac monitoring. The monitor shows a rate of 70 with sinus rhythm 1220: Vital signs stable. Imaging does show cardiomegaly with fluid overload. proBNP and troponin elevated. Patient not reporting any chest pain. Troponin elevation most likely due to CHF exacerbation. [facility]. Impression & Plan Congestive heart failure Discharge Plan Visit Data Chief Complaint: Shortness of Breath/Dyspnea Stated Complaint: SOB ED Provider: Cody Vaneags Discharge Problem: Congestive heart failure Patient Disposition: Admitted As Inpatient Discharge Instructions Interventions: ED Discharge Assessment Last Done: 10/28/20 15:41 Discharge Problem: Congestive heart failure Qualifiers: Heart failure type: unspecified Heart failure chronicity: acute Qualified Code(s): I50.9 - Heart failure, unspecified
[2020-10-28] MEDS: LEVALBUTEROL TARTRATE 15 GM HFA.AER.AD INH SCH (19:46)
[2020-10-28] MEDS: DOCUSATE SODIUM 100 MG CAP PO SCH (20:29)
[2020-10-28] MEDS: METOPROLOL TARTRATE 25 MG TAB PO SCH (20:29)
[2020-10-28] MEDS: INSULIN GLARGINE SOLOSTAR 100 UNITS/ML 3 ML PEN SC SCH (20:29)
[2020-10-28] MEDS: NORTRIPTYLINE HCL 25 MG CAP PO SCH (20:30)
[2020-10-29] MEDS: LEVALBUTEROL TARTRATE 15 GM HFA.AER.AD INH SCH ×4 (00:44→19:27)
--- NOTE | 2020-10-29 07:01 | Ultrasound Report ---
US venous doppler LE BI CLINICAL HISTORY: Leg edema. LUNG CARCINOMA COMPARISON STUDY: No previous studies for comparison. FINDINGS: Real-time and color flow Doppler imaging were performed. Flow was seen within the femoral, popliteal and calf veins with no intraluminal thrombus demonstrated. The saphenous vein is patent. Th ere is a complex right popliteal cyst measuring 54 x 16 x 9 mm. IMPRESSION: No evidence of lower extremity DVT. ACT 112: Negative or not required by law. Electronically signed by: Garland Singh M.D. 10/29/2020 7:00 AM
[2020-10-29] MEDS: DIGOXIN 0.125 MG TAB PO SCH (08:25)
[2020-10-29] MEDS: DOCUSATE SODIUM 100 MG CAP PO SCH ×2 (08:25→20:38)
[2020-10-29] MEDS: ATORVASTATIN 40 MG TAB PO SCH (08:26)
[2020-10-29] MEDS: ASPIRIN 81 MG ECTAB PO SCH (08:26)
[2020-10-29] MEDS: METOPROLOL TARTRATE 25 MG TAB PO SCH ×2 (08:26→20:39)
[2020-10-29] MEDS: lisinopril 10 MG TAB PO SCH (08:27)
[2020-10-29] MEDS: SPIRONOLACTONE 25 MG TAB PO SCH (08:27)
[2020-10-29] MEDS: FLUTICASONE FUROATE 200MCG 14 PUFFS/INHALER INH SCH (08:29)
[2020-10-29] MEDS: INSULIN ASPART 100 UNITS/ML 3 ML PEN SC SCH ×4 (08:30→20:41)
[2020-10-29] MEDS: FUROSEMIDE 40 MG in SYRINGE 0 ML IV SCH ×2 (08:31→17:18)
[2020-10-29] MEDS: INSULIN GLARGINE SOLOSTAR 100 UNITS/ML 3 ML PEN SC SCH ×2 (08:31→20:39)
[2020-10-29 08:34] LABS: INR 1.5 (0.9-1.1); Prothrombin Time 14.3 Seconds (9.0-12.0)
[2020-10-29 08:44] LABS: BUN Creatinine Ratio 23.4 (10-20); Calcium 7.5 mg/dl (8.5-10.1); Creatinine Clr Calc Pharmacy 47.5 ml/min; Est GFR (Non-African American) 45.8; Potassium 3.4 mmol/L (3.5-5.1)
[2020-10-29] MEDS ORDERED: AMIODARONE 200 MG TAB PO SCH (09:00)
[2020-10-29] MEDS ORDERED: Nursing to Pharmacy Communication SCH (09:30)
[2020-10-29] MEDS ORDERED: POTASSIUM CHLORIDE CRTAB 20 MEQ TABCR PO ONE (10:00)
[2020-10-29] MEDS: AMIODARONE 200 MG TAB PO SCH (10:28)
--- NOTE | 2020-10-29 10:50 | Pulmonary Consultation ---
Date of Consultation October 29, 2020 Assessment & Plan (1) Lung mass: Impression: 70-year-old male that is an inmate at [facility] correctional institution. Lifelong smoker until the senior care system went tobacco free for years ago. 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 Patient presented yesterday for shortness of breath and was found to have a large mass at the right lower lobe on CT scan as well as vast and significant lymphadenopathy. No history of prior cancer personally but family history of various types of cancer. Patient no hemoptysis. Vital signs are stable. Recommendations: 1. Lung mass with associated lymphadenopathy: Discussed case with general surgery. At this point they recommend thoracic surgery to do biopsy of supraclavicular lymph nodes. Discussed with patient. We will proceed with endobronchial ultrasound tomorrow morning at 8:[address] Josue. INR was 1.5. This will be rechecked this afternoon. Coumadin is to be held until after the procedure. If INR is elevated above 1.5 this afternoon, administer 2.5 mg of IV vitamin K. Recheck INR with a.m. labs tomorrow. Dr. Josue will obtain consent when he sees the patient later today. N.p.o. after midnight. 2. COPD: Lifelong smoker with greater than [id number] history. Quit smoking 4 years ago. Oxygenating well on room air. Outpatient medications include ciclesonide every 12 hours (ICS) leave albuterol every 6 hours (PAULETTE). Inpatient meds were started were Arnuity Ellipta daily (ICS) and levalbuterol (PAULETTE) every 6 hours scheduled. No PFTs are available for review. Maintain SaO2 between 88 and 92%. 3. Atrial fibrillation with chronic anticoagulation: Patient currently appears to be in normal sinus rhythm on exam with a heart rate in the 60s. Coumadin has been held pending invasive diagnostics. INR is 1.5. Recheck INR this afternoon. Administer vitamin K 2.5 mg IV if INR greater than 1.5. Recheck INR in the morning with a.m. labs. 4. Acute on chronic systolic heart failure: Continue with diuretics. Daily standing weights. Maintain SaO2 between 88 to 92%. 5. DVT prophylaxis: Patient chronically anticoagulated with warfarin. This is been held for invasive diagnostics. Would hold on further chemical prophylaxis at this time. Recommend SCDs and ANA jackson. Thank you for including us in the care of this patient. We will continue to follow along with you Please refer to Dr. Josue's addendum for further recommendations and corrections. (2) LAD (lymphadenopathy), mediastinal: (3) Supraclavicular lymphadenopathy: (4) COPD (chronic obstructive pulmonary disease): (5) Acute on chronic systolic heart failure: (6) Ischemic cardiomyopathy: (7) Atrial fibrillation: (8) Coronary artery disease: (9) Automatic implantable cardioverter-defibrillator in situ: (10) DVT prophylaxis: Supervising Physician Co-Signing Physician Notes I saw and evaluated the patient with Yasmany carlton, and agree with findings and plan as documented in the note. Admitted with shortness of breath No family history of lung cancer. At the time of examination daughters were present in the room. Patient has actually gained weight in the last couple of months. Shortness of breath is improved after coming to the hospital. Denies any hemoptysis. Denies any chest pain. No headache, no blurry vision. He has been on warfarin for A. fib. His INR was 1.5 in the morning. Repeat INR later today was 1.6. I will give the patient 2.5 mg of IV vitamin K. Repeat PT/INR in the morning Constitutional: No acute distress HEENT: EOMI, PERRLA, right supraclavicular lymph node appreciated Respiratory system: Decreased air entry bilaterally, no wheeze, no rhonchi, positive crackles bilateral lower lobes CVS: S1-S2 positive, no murmurs or gallops, irregular, left-sided AICD Abdomen: Soft, nontender, nondistended, positive bowel sounds x4 Extremities: +2 pulses bilaterally radialis/ dorsalis pedis, no cyanosis, +2 pitting edema bilateral lower extremity Neuro: Awake alert oriented x3 Psych: Normal mood and affect G/U: No Bonilla Supraclavicular lymph node could be biopsied for diagnosis but unfortunately general surgery recommends CT surgeon we do not have CT surgery in the hospital. Patient does have pleural effusion bilateral this is mostly coming from CHF. It could be metastatic effusion as well. Diagnosis can be made from the pleural fluid but there would not be enough cells to get special markers. Plan would be to have EBUS tomorrow. N.p.o. post midnight. Hold on anticoagulation. Risk and benefits of the procedure explained to the patient in depth. Patient understands and wants to go ahead with the procedure. Consent signed, witnessed and put in the chart CT chest 10/28/2020 personally reviewed: Centrilobular and paraseptal emphysema appreciated bilaterally, bilateral pleural effusion more on the right side, mediastinal lymphadenopathy appreciated especially station 7, 10 R as well as right lower lobe mass. Overall prognosis of the patient is poor given the extent of the disease. Recommend MRI of the brain to rule out mets. Please note the above document was generated using voice recognition software. It may contain grammatical, syntax or spelling errors.Any formal questions or concerns about the content, text or information contained within the body of this dictation should be directly addressed to the provider for clarification. History of Present Illness Attending Physician: Vidhi Gutierrez MD History of Present Illness Attending: Dr. Josue This is a 70-year-old male that is an inmate at the [facility]. 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 Patient presented to ED for evaluation yesterday for shortness of breath and weight gain. He was given IV furosemide and had copious amounts of urine output. Chest x-ray showed rounded atelectasis and possible pneumonia of the right lower lobe. Due to past history, a CT scan of the chest was obtained which showed significant and extensive lymphadenopathy as well as a large mass in the right lower lobe. Patient denies any cough, sputum production, hemoptysis. He does state that he gets dyspnea with exertion with minimal activity. He denies any fever or chills. He has no rigors. He has no chest pain or tightness. He denies any awareness of arrhythmia. He further denies any awareness of AICD firing. He has no unusual bleeding. At the time my examination he is feeling better since admission. He is having no difficulty with urinating into a urinal. Allergies Allergy/AdvReac Type Severity Reaction Status Date / Time No Known Allergies Allergy Verified 10/28/20 10:50 Home Medications Medication Instructions Recorded Confirmed Type amiodarone 200 mg tablet 200 mg PO DAILY 09/22/20 10/28/20 History atorvastatin 80 mg tablet 80 mg PO DAILY 09/22/20 10/28/20 History ciclesonide 160 mcg/actuation 1 puff INHALATION Q12H 09/22/20 10/28/20 History aerosol inhaler digoxin 125 mcg (0.125 mg) tablet 125 mcg PO DAILY 09/22/20 10/28/20 History furosemide 40 mg tablet 40 mg PO BID 09/22/20 10/28/20 History levalbuterol tartrate 45 2 inh INHALATION Q6H 09/22/20 10/28/20 History mcg/actuation aerosol inhaler lisinopril 10 mg tablet 10 mg PO DAILY 09/22/20 10/28/20 History metoprolol tartrate 25 mg tablet 25 mg PO BID 09/22/20 10/28/20 History nortriptyline 50 mg capsule 50 mg PO HS 09/22/20 10/28/20 History spironolactone 25 mg tablet 25 mg PO DAILY 09/22/20 10/28/20 History warfarin 2 mg tablet 2 mg PO HS 09/22/20 10/28/20 History docusate sodium 100 mg tablet 100 mg PO DAILY 09/30/20 10/28/20 History insulin regular human [Novolin R 1 sliding scale dose SUBCUT 10/28/20 10/28/20 History Regular U-100 Insuln] USEASDIRECTD Patient History Medical History Atrial fibrillation Automatic implantable cardioverter-defibrillator in situ Medtronic single-chamber. Implanted 2012 COPD (chronic obstructive pulmonary disease) Coronary artery disease Ischemic cardiomyopathy Mixed hyperlipidemia Type 2 diabetes mellitus dx 2020 Surgical History History of coronary artery stent placement Family History Uncle Myocardial infarction Father Myocardial infarction Mother Breast cancer Cervical cancer Social History Smoking Status: Former smoker Age Quit Using Tobacco: 66; packs per day: 1; Cigarettes Per Day: 1 PPD; Smoking End Date: 4 years ago quit for the most recent time.; Second Hand Exposure: No; Do You Dip or Chew Tobacco: No; Tobacco Cessation Education Requested by Patient: No Hx Alcohol Use: Yes Alcohol type: hard liquor Alcohol type Comment: in the past before senior care Hx Substance Use: Yes Non-Prescribed Medications: Marijuana Last Used Substance: Days (ago) Last Used Substance Other:: 4+ years ago last use. 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 Decreased breath sounds at the right base. Fine crackles at bilateral bases. SaO2 94% on room air HEART: Regular, rate controlled in the 60s ABDOMEN: Soft, NT, ND, BS Present EXTREMITIES: No LE edema, pedal pulses intact and equal bilaterally NEURO: A&OX3 Results & Data Results & Data ([facility]) Vital Signs (Past 12 Hours) Vital Signs Temp Pulse Pulse Resp BP BP Pulse Ox 10/29/20 09:59 62 10/29/20 08:25 62 10/29/20 07:43 56 L 20 94 10/29/20 07:00 36.4 C L 62 18 123/73 92 10/29/20 03:05 36.6 C 68 17 111/64 90 10/29/20 00:47 62 20 92 10/29/20 00:46 62 10/28/20 23:11 36.7 C 61 17 113/71 90 Laboratory Results 10/28/20 10:01 10/29/20 07:54 INR 1.5 (0.9-1.1) H 10/29/20 07:54 10/28/20 10:01 Troponin I 0.058 H* Diagnostic Findings CT chest diagnostic wo con CT DOSE: 346.07 mGy.cm CLINICAL HISTORY: 70 years-old Male with supraclavicular LAD; COPD; eval nodules. Chronic shortness of breath with pulmonary nodules. TECHNIQUE: Multiaxial CT images of the chest were performed without contrast. A dose lowering technique was utilized adhering to the principles of ALARA. COMPARISON: Chest radiograph of same day. FINDINGS: Unremarkable thyroid. Mild cardiomegaly. Extensive southern ute coronary artery calcifications. Left subclavian pacer. No thoracic aortic aneurysm. Partially imaged pathologically enlarged right supraclavicular lymph nodes measure up to 2.4 x 2.2 cm. Pathologically enlarged mediastinal lymph nodes include conglomerate subcarinal adenopathy measuring up to 6.1 x 3.3 x 5.2 cm. Right hilar adenopathy measures up to 3.3 x 1.9 cm. Pathologic lymph node measuring up to 9 mm is noted abutting the left pericardial border on image 228. Innumerable lesions throughout the liver compatible with hepatic metastasis measuring up to 4.4 cm within the right hepatic lobe. There are heterogeneous masses of the bilateral kidneys measuring up to 4.8 cm on the right. 4.6 cm mass of the abdominal left upper quadrant may be associated with the left kidney. Bilateral adrenal gland masses measuring up to 2.3 cm on the left suggest adrenal metastasis. Pathologic 1.9 x 1.5 cm lymph node adjacent to the proximal stomach on image 251. Gynecomastia. Healed chronic left-sided rib fractures. Degenerative changes of the shoulders and spine. Mild superior endplate compression deformities noted at the T1, T4-T6 without retropulsion. Small left and small to moderate right pleural effusions with bibasilar dependent consolidation. No pneumothorax. Mild emphysema. Pulmonary vascular c ongestion with mild intralobular septal thickening. Mass of the right lower lobe, 5.6 x 7.8 x 6.7 cm. There is associated opacification of the adjacent right lower lobe bronchi suggestive of tumor extension. Numerous satellite nodules of the right lower lobe measure up to 10 mm. Asymmetric groundglass opacities with intralobular septal thickening of the right lower lobe. Central airways are patent. IMPRESSION: 1. 7.8 cm mass of the right lower lobe suggests primary bronchogenic carcinoma and demonstrates apparent right lower lobe endobronchial component. 2. Cardiomegaly with pulmonary edema, small left and small to moderate right pleural effusions. 3. Extensive metastatic disease includes satellite right lower lobe pulmonary metastasis, right supraclavicular, mediastinal, hilar and upper abdominal adenopathy, hepatic, adrenal, and presumed renal metastasis. 4. Bibasilar atelectasis with findings suggestive of postobstructive pneumonitis of the right lower lobe. 5. Age-indeterminate thoracic compression deformities as above, most pronounced at T6. No suspicious bone lesions identified. 6. Additional findings as above. ACT 112: Negative or not required by law. Dictated: 10/28/2020 5:01 PM Transcribed: 10/28/2020 5:54 PM Hailey [id number] MILTON_Maurone Electronically signed by: Herbie Pisano M.D. 10/28/2020 6:05 PM PG Care Time/CCT Total # of Minutes Spent Total Time Spent with Patient: Total time spent is greater than 50% in coordination of care (as documented) at patient's floor/unit and/or counseling patient:45 minutes including interview and examination of patient, discussion with other providers, chart review, discussion and CT review with surgery. Coding Level of Care Code 38466 Inpt Consult Level 4 Diagnoses Lung mass R91.8 LAD (lymphadenopathy), mediastinal R59.0 Supraclavicular lymphadenopathy R59.0 COPD (chronic obstructive pulmonary disease) J44.9 Acute on chronic systolic heart failure I50.23 Ischemic cardiomyopathy I25.5 Atrial fibrillation I48.91 Coronary artery disease I25.10 Automatic implantable cardioverter-defibrillator in situ Z95.810 DVT prophylaxis Z29.9 Time Spent (min) 45
--- NOTE | 2020-10-29 12:13 | Consultation Report ---
DATE OF CONSULTATION: 10/29/2020 REASON FOR CONSULTATION: Probable metastatic lung cancer. HISTORY OF PRESENT ILLNESS: The patient is a 70-year-old senior living inmate who was admitted to [facility] on 10/28/2020 complaining of worsening dyspnea x2 months, which became much more severe in the last couple of weeks. According to clinical records and the patient himself, he has gained significant weight up from 165 pounds to 189 pounds respectively. He also has been battling with PND and orthopnea prior to admission. On admission, radiographic studies including chest x-ray and CT of the chest were performed. Chest x-ray had revealed mild interstitial pulmonary edema along with a small right pleural effusion. CT of the chest more specifically identified a 7.8 cm mass in the right lower lobe suggestive of a primary lung cancer, cardiomegaly along with pulmonary edema. Extensive metastatic disease involving the right lower lobe satellite lesion, right supraclavicular, mediastinal hilar and upper abdominal adenopathy, hepatic and adrenal lung with a presumed renal metastatic disease. Biopsy is yet to be undertaken. I see that Pulmonary is on consultation. Patient himself at the bedside this morning, he is not in any pain or discomfort, shortness of breath, he denied cough or hemoptysis. He actually gained several pounds of weight and clearly is in congestive heart failure at present time. I have been asked to introduce myself to patient anticipating probable diagnosis of metastatic lung cancer. PAST MEDICAL HISTORY: Positive for ischemic cardiomyopathy, atrial fibrillation, automatic implantable cardioverter and defibrillator, COPD, hyperlipidemia and type 2 diabetes mellitus. PAST SURGICAL HISTORY: Status post coronary artery stenting. MEDICATIONS: Prior to admission, amiodarone 200 mg p.o. daily, atorvastatin 80 mg p.o. every day, ciclesonide 1 puff inhaled q. 12 hours, digoxin 125 mcg p.o. daily, furosemide 40 mg p.o. b.i.d., levalbuterol 2 inhalations q. 6 hours, lisinopril 10 mg p.o. daily, metoprolol 25 mg p.o. b.i.d., nortriptyline 50 mg p.o. at bedtime, spironolactone 25 mg p.o. daily, warfarin 2 mg daily, docusate sodium 100 mg p.o. daily, sliding scale regular insulin. ALLERGIES: No known drug allergies. FAMILY HISTORY: He had an uncle that from myocardial infarction as well as his father. Mother suffered from breast and cervical cancer. SOCIAL HISTORY: The patient is a senior living inmate. He is . 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 He was a regular alcohol consumer prior to incarceration and he was a pack per day smoker for many years. REVIEW OF SYSTEMS: CONSTITUTIONAL: Positive for fatigue and decreased exercise tolerance. Positive for significant weight gain as described in the HPI. He is not anorexic. No fevers, chills or sweats. SKIN: No rashes or lesions. No history of dermatosis. HEENT: Denies headaches, lightheadedness or dizziness. No dysphagia or sore throat. LYMPH: No history of lymphoproliferative disease. CARDIAC: Positive history of coronary artery disease. No current angina or palpitations. PULMONARY: Positive for COPD. Positive for orthopnea, shortness of breath and dyspnea on exertion. No cough or hemoptysis. GASTROINTESTINAL: Positive for bloating. He has also had intermittent nausea for the past couple of weeks, intermittent diarrhea. No hematochezia, melena or tanja rectal bleeding. GENITOURINARY: No history of prostate disease. No hematuria, dysuria, or urinary incontinence. PSYCHIATRIC: Negative for anxiety, depression or psychoses. MUSCULOSKELETAL: No focal muscle weakness. No skeletal pain. ENDOCRINE: Positive for diabetes mellitus. NEUROLOGIC: Positive for peripheral neuropathy involving his feet bilaterally. No seizure, stroke, or migraine headache. HEMATOLOGIC: Positive for leukocytosis, predominant neutrophilia. PHYSICAL EXAMINATION: GENERAL: Very pleasant 70-year-old senior living inmate awake, alert and appropriate, in no acute distress. VITAL SIGNS: Temperature 36.6, pulse 68, respiratory rate 17, blood pressure 111/64. SKIN: Warm, dry, noncyanotic without petechia, rash or ecchymosis. HEENT: Head is atraumatic, normocephalic. Eyes: PERRLA, EOMI. Sclerae nonicteric. No conjunctival injection. Nares patent without rhinorrhea or discharge. Throat clear. Tongue midline. Mucous membranes are moist. No buccal lesions or ulcerations. NECK: Supple without JVD or thyromegaly. LYMPHATICS: No cervical or supraclavicular palpable nodes. HEART: Regular rate and rhythm. No clicks, rubs, murmurs or gallops. LUNGS: Clear to auscultation. Could not appreciate rales or rhonchi. ABDOMEN: Obese, soft, nontender, nondistended, without palpable hepatosplenomegaly. No rigidity or guarding. EXTREMITIES: Trace peripheral edema bilateral lower extremities, otherwise strength and pulses are equal in all 4 quadrants. NEUROLOGICALLY: He is awake, alert and oriented x3. Cranial nerves are intact. LABORATORY DATA: WBC count 12,720, hemoglobin 16.3, platelet count 187,000. PT 13.9 seconds, INR 1.4, patient on Coumadin. Sodium 137, potassium 3.7, chloride 102, carbon dioxide 29, creatinine 1.49, BUN 32, calcium decreased at 8.3. BNP 4683. Troponin I 0.058. Hemoglobin A1c 9.3. ASSESSMENT: 1. Acute on chronic congestive heart failure. 2. Atrial fibrillation. 3. Ischemic cardiomyopathy. 4. Radiographically evident metastatic lung cancer. 5. Weight gain attributable to congestive heart failure. PLAN: I introduced myself to patient at bedside this morning. He has been steadily declining over the past several weeks as described in the HPI. A CT scan of the chest was performed on admission, revealing a primary lung mass measuring 7.8 cm in the right lower lobe. There are multiple enlarged lymph nodes, mainly in the right supraclav area as well as a subcarinal lymph nodes, right hilar lymphadenopathy, pathologic lymph node measuring 9 mm in the left pericardial border, numeral lesions within the liver compatible with hepatic metastatic disease, the largest being 4.4 cm in the right hepatic lobe, bilateral kidneys as well as bilateral adrenal glands suggestive of metastatic disease. Thus ample radiographic evidence for metastatic disease. Need to obtain biopsy, pulmonary is presently on consultation, perhaps they can get a significant issue from the main lesion. Tumor biomarkers need to be secured as well including ROS1, EGFR, PD-L1, and ALK. Obviously, this gentleman is not a surgical candidate and would ask general surgery to go ahead and proceed with MediPort placement in anticipation of receiving chemotherapy. The patient is interested in salvage therapy. I made it very clear to him, he cannot be cured and the goal of any therapy moving forward is to extend life while maintaining quality if possible. We will plan to reconvene with the patient once diagnosis is established to establish a therapeutic plan moving forward. Agree with medical management otherwise. Thank you very much for allowing me to participate in patient's care.
[2020-10-29] MEDS ORDERED: PERFLUTREN LIPID MICROSPHERE (DEFINITY) IV ONE (14:55)
[2020-10-29 16:36] LABS: INR 1.6 (0.9-1.1); Prothrombin Time 15.4 Seconds (9.0-12.0)
--- NOTE | 2020-10-29 17:15 | XCELERA ---
[id number]
[2020-10-29] MEDS ORDERED: POTASSIUM CHLORIDE 10 MEQ TABCR PO STA (18:36)
[2020-10-29] MEDS ORDERED: PHYTONADIONE 2.5 MG in SODIUM CHLORIDE 0.9% 50 ML IV ONE ×2 (19:00→19:04)
[2020-10-29] MEDS: NORTRIPTYLINE HCL 25 MG CAP PO SCH (20:39)
--- NOTE | 2020-10-29 22:13 | Hospitalist Progress Note ---
Date of Service October 29, 2020 Assessment & Plan (1) Acute on chronic systolic heart failure: Presented with increasing shortness of breath, lower extremity swelling, abdominal distention, and weight gain Long history of chronic systolic CHF from ischemic cardiomyopathy; echocardiogram here indeed shows LVEF 30-35% with regional wall motion abnormalities and elevated RVSP at 50-60 mmHg Received IV lasix 80mg IV x 1 and 40mg PO lasix x 1 at [facility] prior to transfer here. Has had COPIOUS diuresis since then. Feels much improved -Continue lasix 40mg IV BID Daily BMP. Digoxin level 1.1 Cont BB - Dr Hernandez's note from September suggested changing metoprolol tartrate to succinate -- can do that during this stay-we will change to Toprol-XL 50 mg once daily in the morning for tomorrow Cont lisinopril Cont aldactone. Strict I's and O's, daily weights, low-sodium diet, fluid restriction 1500 mL (2) Lung mass: Large at 7.8 cm in the right lower lobe with mediastinal lymphadenopathy, other pulmonary metastases, hepatic, adrenal, and renal metastases also with pleural effusions. Most certainly this is cancer. Appreciate oncology consultation-recommends biopsy with large enough sample to send out appropriate testing Appreciate pulmonology consultation-plan for EBUS tomorrow N.p.o. after midnight INR still elevated 1.6-give vitamin K 2.5 mg IV x1 now and follow INR in the morning Patient wishes to pursue chemotherapy We will place surgical consult for port placement (3) Atrial fibrillation: Remains in normal sinus rhythm here Dr Hernandez's note from September advised lowering amiodarone to 100mg from 200mg - have changed that this admission. Holding warfarin for procedure as above Digoxin level okay at 1.1 Cont metoprolol. (4) Ischemic cardiomyopathy: h/o acute MIs on at least 2 occasions - perhaps more - leading to ischemic cardiomyopathy. Echo as above with reduced EF and regional wall motion abnormalities (5) Coronary artery disease: multiple NSTEMIs in past. cont BB, RODRIGUEZ, statin. uncertain why he is not on aspirin -started asa 81mg daily. (6) Automatic implantable cardioverter-defibrillator in situ: device interrogated in September [address] Hernandez. battery life is nearing end. will need referral back to Dr Hernandez to exchange this operatively. (7) Supraclavicular lymphadenopathy: right. CT chest ordered due to significant smoking history and the lymph node -- lung cancer seen in RLL (very large mass). As above (8) Mixed hyperlipidemia: statin (9) COPD (chronic obstructive pulmonary disease): no exacerbation at this time cont inhalers (10) History of coronary artery stent placement: noted details uncertain however - old records not available (11) Type 2 diabetes mellitus: a1c >9% He was recently diagnosed with this and is not on any medication at the present hold regular insulin -- change to novolog and will tighten down correction factor today for hyperglycemia Increase lantus to 15 units BID (12) Hypoxia: Intermittent with pulse ox 87% on room air upon admission Currently stable on room air Diuresing (13) Hypokalemia: Replaced with oral potassium chloride Follow BMP in the morning (14) CKD (chronic kidney disease) stage 3, GFR 30-59 ml/min: Creatinine 1.4 on admission now 1.5, unclear what baseline is Follow BMP Renally dose medications Avoid nephrotoxins (15) DVT prophylaxis: Coumadin being held for procedure Doppler of the lower extremities bilaterally is negative for DVT Disposition-continued stay Admission and Anticipated Discharge Date Admission Date: October 28, 2020 Subjective Patient reports he feels better than when he came in, leg swelling is down and shortness of breath is improved. He understands that he likely has metastatic lung cancer but says that he is willing to have a port placed and do chemotherapy as discussed with oncology this morning. He denies any cough or sputum production. Denies any nausea or abdominal pain. I discussed the case with the pulmonary PA Review of Systems Review of Systems: All systems reviewed & are unremarkable except as noted in HPI & below Physical Exam Constitutional: WD/WN, vitals as above Eyes: + anicteric sclerae Neck: trachea midline, no thyromegaly Respiratory: normal respiratory effort Auscultation: + diminished lung sounds (At the right base); no crackles (Bibasilar), no rhonchi and no wheezes Cardiovascular: Rate/Rhythm: regular rate and regular rhythm Heart Sounds: no murmur Extremities: + edema (Trace pitting edema of the legs bilaterally) Chest (Breasts): Chest: normal inspection of chest Gastrointestinal (Abdomen): normal bowel sounds, soft, nontender, no hepatosplenomegaly Musculoskeletal: Extremities: extremities normal to inspection; no cyanosis and no clubbing Skin: no rashes, warm and dry Neurologic: moves all extremities and awake; no focal motor deficits Psychiatric: A+Ox3, euthymic affect Results & Data Results & Data ([facility]) Vital Signs (Past 12 Hours) Vital Signs Temp Pulse Pulse Resp BP BP Pulse Ox 10/29/20 20:00 36.6 C 73 18 128/75 87 L 10/29/20 19:28 69 18 90 10/29/20 18:42 71 10/29/20 15:26 36.9 C 79 18 120/74 90 10/29/20 12:57 77 16 90 10/29/20 11:05 36.4 C L 73 18 126/74 92 Laboratory Results 10/29/20 10/29/20 10/29/20 Range/Units 20:25 16:32 15:54 PT 15.4 H (9.0-12.0) Seconds INR 1.6 H (0.9-1.1) Sodium (136-145) mmol/L Potassium (3.5-5.1) mmol/L Chloride (98-107) mmol/L Carbon Dioxide (21-32) mmol/L Anion Gap (3-11) BUN (7-18) mg/dl Creatinine (0.6-1.4) mg/dl Est Cr Clr Drug Dosing ml/min Est GFR ( Amer) Est GFR (Non-Af Amer) BUN/Creatinine Ratio (10-20) Glucose (70-99) mg/dl POC Glucose 275 H 240 H (70-99) mg/dl Calcium (8.5-10.1) mg/dl 10/29/20 10/29/20 10/29/20 Range/Units 11:42 07:54 07:54 PT 14.3 H (9.0-12.0) Seconds INR 1.5 H (0.9-1.1) Sodium 141 (136-145) mmol/L Potassium 3.4 L (3.5-5.1) mmol/L Chloride 105 (98-107) mmol/L Carbon Dioxide 31 (21-32) mmol/L Anion Gap 6.0 (3-11) BUN 36 H (7-18) mg/dl Creatinine 1.52 H (0.6-1.4) mg/dl Est Cr Clr Drug Dosing 47.5 ml/min Est GFR ( Amer) 53.0 Est GFR (Non-Af Amer) 45.8 BUN/Creatinine Ratio 23.4 H (10-20) Glucose 221 H (70-99) mg/dl POC Glucose 282 H (70-99) mg/dl Calcium 7.5 L (8.5-10.1) mg/dl 10/29/20 Range/Units 07:41 PT (9.0-12.0) Seconds INR (0.9-1.1) Sodium (136-145) mmol/L Potassium (3.5-5.1) mmol/L Chloride (98-107) mmol/L Carbon Dioxide (21-32) mmol/L Anion Gap (3-11) BUN (7-18) mg/dl Creatinine (0.6-1.4) mg/dl Est Cr Clr Drug Dosing ml/min Est GFR ( Amer) Est GFR (Non-Af Amer) BUN/Creatinine Ratio (10-20) Glucose (70-99) mg/dl POC Glucose 217 H (70-99) mg/dl Calcium (8.5-10.1) mg/dl PG Care Time/CCT Total # of Minutes Spent Total Time Spent with Patient: Total time spent is greater than 50% in coordination of care (as documented) at patient's floor/unit and/or counseling patient: Coding Level of Care Code 85201 Subseq Hosp Care Lvl 3 Diagnoses Acute on chronic systolic heart failure I50.23 Lung mass R91.8 Atrial fibrillation I48.91 Ischemic cardiomyopathy I25.5 Coronary artery disease I25.10 Automatic implantable cardioverter-defibrillator in situ Z95.810 Supraclavicular lymphadenopathy R59.0 Mixed hyperlipidemia E78.2 COPD (chronic obstructive pulmonary disease) J44.9 History of coronary artery stent placement Z95.5 Type 2 diabetes mellitus E11.9 Hypoxia R09.02 Hypokalemia E87.6 CKD (chronic kidney disease) stage 3, GFR 30-59 ml/min N18.30 DVT prophylaxis Z29.9
[2020-10-30] MEDS: LEVALBUTEROL TARTRATE 15 GM HFA.AER.AD INH SCH ×4 (00:29→19:33)
[2020-10-30] MEDS: FLUTICASONE FUROATE 200MCG 14 PUFFS/INHALER INH SCH (07:27)
[2020-10-30] MEDS: METOPROLOL SUCC 50MG EXT REL TAB PO SCH (07:28)
[2020-10-30] MEDS: DIGOXIN 0.125 MG TAB PO SCH (07:28)
[2020-10-30] MEDS: FUROSEMIDE 40 MG in SYRINGE 0 ML IV SCH ×2 (07:28→16:15)
[2020-10-30] MEDS: AMIODARONE 200 MG TAB PO SCH (07:29)
[2020-10-30] MEDS: ATORVASTATIN 40 MG TAB PO SCH (07:30)
[2020-10-30] MEDS: lisinopril 10 MG TAB PO SCH (07:30)
[2020-10-30] MEDS: SPIRONOLACTONE 25 MG TAB PO SCH (07:31)
[2020-10-30] MEDS: INSULIN ASPART 100 UNITS/ML 3 ML PEN SC SCH ×4 (07:38→20:43)
[2020-10-30 07:40] LABS: Basophils # (auto) 0.01 K/uL (0-0.2); Basophils % (auto) 0.1 %; Eosinophils # (auto) 0.01 K/uL (0-0.5); Eosinophils % (auto) 0.1 %; Hemoglobin 15.8 g/dL (14.0-18.0); Immature Granulocytes # (auto) 0.09 K/uL (0.00-0.02); Immature Granulocytes % (auto) 0.8 %; Lymphocytes # (auto) 0.73 K/uL (1.2-3.4); Lymphocytes % (auto) 6.1 %; Mean Corpuscular Hemoglobin 33.5 pg (25-34); Mean Corpuscular Hgb Conc 33.6 g/dL (32-36); Mean Corpuscular Volume 99.8 fL (80-100); Mean Platelet Volume 11.6 fL (7.4-10.4); Monocytes # (auto) 0.58 K/uL (0.11-0.59); Monocytes % (auto) 4.8 %; Neutrophils # (auto) 10.54 K/uL (1.4-6.5); Neutrophils % (auto) 88.1 %; Platelet Count 148 K/uL (130-400); RDW Coefficient of Variation 15.5 % (11.5-14.5); RDW Standard Deviation 56.2 fL (36.4-46.3); Red Blood Count 4.71 M/uL (4.7-6.1); White Blood Count 11.96 K/uL (4.8-10.8)
--- NOTE | 2020-10-30 07:46 | Pre Anesthesia Assessment ---
Date of Service October 30, 2020 Pre Sedation Assessment Vital Signs Temp Pulse Pulse Resp BP BP Pulse Ox 10/30/20 07:28 72 10/30/20 07:13 69 18 95 10/30/20 06:50 36.4 C L 70 18 121/77 95 10/30/20 03:15 36.3 C L 67 18 160/73 H 96 10/30/20 00:30 63 63 18 95 10/29/20 23:09 36.3 C L 72 18 128/77 93 10/29/20 20:00 36.6 C 73 18 128/75 87 L 10/29/20 19:28 69 18 90 10/29/20 18:42 71 10/29/20 15:26 36.9 C 79 18 120/74 90 10/29/20 12:57 77 16 90 10/29/20 11:05 36.4 C L 73 18 126/74 92 10/29/20 09:59 62 10/29/20 08:25 62 Pre-Sedation Airway Assessment Smoking Status: Former smoker Mallampati Class: II ASA: ASA3 Procedure Planning Contraindications for Sedation: none Notes The planned sedation has been discussed with the patient. Informed Consent was obtained. I have identified the patient, determined the appropriateness of sedation and have assessed the patient immediately prior to the procedure. All medicine(s) and interventions are by my order.
--- NOTE | 2020-10-30 07:46 | History & Physical Bridge Note ---
Date of Service October 30, 2020 History & Physical Bridge Note I have examined the patient, reviewed the History & Physical and in the interval since the performance of the History & Physical I have noted the following changes of clinical significance: no changes noted
[2020-10-30 07:53] LABS: INR 1.2 (0.9-1.1); Prothrombin Time 12.3 Seconds (9.0-12.0)
[2020-10-30 08:22] LABS: BUN Creatinine Ratio 22.2 (10-20); Calcium 7.8 mg/dl (8.5-10.1); Creatinine Clr Calc Pharmacy 47.1 ml/min; Est GFR (African American) 52.6; Est GFR (Non-African American) 45.4; Magnesium 2.8 mg/dl (1.8-2.4)
[2020-10-30] MEDS ORDERED: MIDAZOLAM HCL 5 MG/ML 1 ML VIAL ONE (08:23)
[2020-10-30] MEDS ORDERED: fentaNYL citrate 100 MCG/2 ML VIAL ONE (08:23)
[2020-10-30] MEDS ORDERED: AMIODARONE 200 MG TAB PO SCH (09:00)
[2020-10-30] MEDS ORDERED: INSULIN GLARGINE SOLOSTAR 100 UNITS/ML 3 ML PEN SC SCH (09:00)
--- NOTE | 2020-10-30 09:06 | Procedure Note ---
Procedure Note: Bronchoscopy Procedure PREOPERATIVE DIAGNOSIS: Right lower lobe mass with mediastinal lymphadenopathy POSTOPERATIVE DIAGNOSIS: Right lower lobe mass with mediastinal adenopathy PROCEDURE PERFORMED: EBUS with flexible fiberoptic bronchoscopy with bronchoalveolar lavage and TBNA COMPLICATIONS: None. INDICATION: Rule out malignancy PROCEDURE: After obtaining an informed consent, the patient was brought to the Bronchoscopy Suite. The patient had appropriate oxygen, blood pressure, heart rate, and respiratory rate monitoring applied and monitored continuously throughout the procedure. Supplemental oxygen via nasal cannula as per nursing records was applied to the nasopharynx with adequate saturations achieved. To pical anesthesia with nebulized 1% lidocaine was achieved. Subsequent to this, the patient was premedicated with 7 mg of midazolam and 150 mcg of fentanyl. Upper Airway: The oropharynx and larynx were well visualized and showed mild erythema, otherwise negative. There was normal vocal cord motion without masses or lesions. Additional topical anesthesia with 1% lidocaine was applied to the trachea and babs. The trachea appeared normal.The bronchoscope was then advanced through the babs, which was widened. The scope was then advanced into the right main stem and each segment, subsegement in the right upper lobe, right middle lobe and right lower lobe were visualized. There was minimal amounts of thick yellow secretions noted which were suctioned out. There were no other findings including evidence of mass, anatomic distortions, or hemorrhage. The bronchoscope was subsequently withdrawn and advanced into the left mainstem. Again, each segment and subsegment was well visualized. No specific masses or other lesions were identified throughout the tracheobronchial tree on the left. There was minimal amounts of thick yellow secretions noted which were suctioned out. Flexible bronchoscope was removed and EBUS was introduced. Station 7 and station 10 R were visualized. 6 passes were made of station 7 all adequate. 2 passes were made for 10R all adequate. Rapid onsite cytology evaluated and stated there is tumor. We got I think enough specimen to run for special stains even. EBUS was withdrawn and flexible bronchoscope was reintroduced. Minimal amount of blood which was in the lumen was suctioned clear. The bronchoscope was then wedged in the right lower lobe and bronchoalveolar lavage samples were obtained. 120 ml of saline was instilled and 40 ml of fluid was aspirated back.The bronchoscope was withdrawn and the area was suctioned clear. The bronchoscope was then withdrawn to the mainstem. The area was suctioned clear. The bronchoscope was then withdrawn. The patient tolerated the procedure well without evidence of desaturation or complications. Bronchoalveolar lavage samples were sent for cell count, Gram stain and bacterial culture, AFB culture and smear, fungal culture and smear and cytology. Transbronchial biopsies were sent for tissue culture (bacteria, AFB and fungal) and pathology. Recommendations: Follow-up chest x-ray Follow-up pathology and cytology
--- NOTE | 2020-10-30 09:21 | Post Anesthesia Assessment ---
Date of Service October 30, 2020 Post Sedation Assessment Vital Signs Temp Pulse Pulse Resp BP BP Pulse Ox 10/30/20 09:13 77 16 130/85 95 10/30/20 09:08 70 16 138/79 95 10/30/20 09:03 70 16 148/85 H 98 10/30/20 08:58 82 16 153/93 H 96 10/30/20 08:55 78 20 154/93 H 95 10/30/20 08:50 86 20 145/94 H 92 10/30/20 08:45 82 20 151/86 H 92 10/30/20 08:40 77 20 163/90 H 97 10/30/20 08:35 87 20 150/95 H 97 10/30/20 08:30 72 20 162/81 H 97 10/30/20 08:25 68 20 142/88 H 97 10/30/20 07:28 72 10/30/20 07:13 69 18 95 10/30/20 06:50 36.4 C L 70 18 121/77 95 10/30/20 03:15 36.3 C L 67 18 160/73 H 96 10/30/20 00:30 63 63 18 95 10/29/20 23:09 36.3 C L 72 18 128/77 93 10/29/20 20:00 36.6 C 73 18 128/75 87 L 10/29/20 19:28 69 18 90 10/29/20 18:42 71 10/29/20 15:26 36.9 C 79 18 120/74 90 10/29/20 12:57 77 16 90 10/29/20 11:05 36.4 C L 73 18 126/74 92 10/29/20 09:59 62 Recovery Score Activity: Moves 4 extremities Respiration: Deep Breath/Cough Circulation: +/-20% PreAnes Value Consciousness: Arouseable (by name) Oxygen Saturation: O2 needed for >90% Post Anesthesia Score: 8 Discharge Sedation Level of Care: Fast Track Phase II Post Sedation Plan On clinical assessment, the patient appears to have tolerated the sedation without complications. Patient is recovering as anticipated. Patient will continue to be monitored by nursing and may be discharged when sedation discharge criteria are met per below protocol. Upon Completions of procedure up to 15 minutes continue every 5 minute vital signs and the P.A.R. score; then discharge to a Phase I or Fast Track to Phase II per the following guidelines: * Discharge Patient to appropriate Phase II area if PAR is 8 or greater or return to pre- procedure baseline. The post - procedure orders will be as directed. * If PAR score is less than 8 or not return to pre-procedure baseline then patient will follow Phase I monitoring till PAR is reached for Phase II. The Phase I may be done in procedure room or may call to secure a Phase I area. * If naloxone or flumazenil are used for reversal, hold in Phase I for continued monitoring from when last reversal dose was given for a minimum of 60 minutes or longer pending the nurse and/or physician discretion of patient condition before discharge to Phase II. Please call the Sedation Physician to re-evaluate and complete post-note for discharge to Phase II area. Do NOT discharge from procedure sedation or Phase 1 until post- sedation evaluation note is complete by procedure /sedation MD Sedation Discharge Instructions to be given to the patient at discharge to home.
--- NOTE | 2020-10-30 09:32 | XRay Report ---
XR chest 1V portable HISTORY: 70 years-old Male status post ebus/bronchoscopy [employer] [place] 6 status post bronchoscopy wit h biopsy COMPARISON: Chest radiograph and chest CT 10/28/2020 TECHNIQUE: Portable AP view of the chest FINDINGS: Left subclavian pacer/AICD. Cardiomegaly with interstitial pulmonary edema. Layering pleural effusion s with bibasilar consolidation, mildly progressed on the left. No pneumothorax. Healed chronic left-s ided rib fractures. Degenerative changes of the shoulders and spine. IMPRESSION: 1. No pneumothorax. 2. Cardiomegaly with pulmonary edema. 2. Pleural effusions with bibasilar opacities, mildly progressed on the left suggestive of atelectasi s versus pneumonitis. ACT 112: Negative or not required by law. The above report was generated using voice recognition software. It may contain grammatical, syntax o r spelling errors. Electronically signed by: Herbie Pisano M.D. 10/30/2020 9:31 AM
--- NOTE | 2020-10-30 12:20 | Surgery Consultation ---
Date of Consultation October 30, 2020 Assessment & Plan (1) Lung mass: pt is a 70 year-old male who was admitted to hospital for lung mass, pt is consult me for port insertion, IMP: lung mass Plan, I recommend to do insertion port under sedation + local tomorrow, D/W benefits, risks and alternatives of the surgery, the risks - infection, bleeding, injury other organs, blood clot, dysfunction of catheter, pt understood, he agrees with the surgery, I answered all questions, , NPO after MN, Hold heparin after MN. Present on Admission?: Yes Supervising Physician Co-Signing Physician Notes I saw and evaluated the patient with Yasmany carlton, and agree with findings and plan as documented in the note. Admitted with shortness of breath No family history of lung cancer. At the time of examination daughters were present in the room. Patient has actually gained weight in the last couple of months. Shortness of breath is improved after coming to the hospital. Denies any hemoptysis. Denies any chest pain. No headache, no blurry vision. He has been on warfarin for A. fib. His INR was 1.5 in the morning. Repeat INR later today was 1.6. I will give the patient 2.5 mg of IV vitamin K. Repeat PT/INR in the morning Constitutional: No acute distress HEENT: EOMI, PERRLA, right supraclavicular lymph node appreciated Respiratory system: Decreased air entry bilaterally, no wheeze, no rhonchi, positive crackles bilateral lower lobes CVS: S1-S2 positive, no murmurs or gallops, irregular, left-sided AICD Abdomen: Soft, nontender, nondistended, positive bowel sounds x4 Extremities: +2 pulses bilaterally radialis/ dorsalis pedis, no cyanosis, +2 pitting edema bilateral lower extremity Neuro: Awake alert oriented x3 Psych: Normal mood and affect G/U: No Bo[place] Supraclavicular lymph node could be biopsied for diagnosis but unfortunately general surgery recommends CT surgeon we do not have CT surgery in the hospital. Patient does have pleural effusion bilateral this is mostly coming from CHF. It could be metastatic effusion as well. Diagnosis can be made from the pleural fluid but there would not be enough cells to get special markers. Plan would be to have EBUS tomorrow. N.p.o. post midnight. Hold on anticoagulation. Risk and benefits of the procedure explained to the patient in depth. Patient understands and wants to go ahead with the procedure. Consent signed, witnessed and put in the chart CT chest 10/28/2020 personally reviewed: Centrilobular and paraseptal emphysema appreciated bilaterally, bilateral pleural effusion more on the right side, mediastinal lymphadenopathy appreciated especially station 7, 10 R as well as right lower lobe mass. Overall prognosis of the patient is poor given the extent of the disease. Recommend MRI of the brain to rule out mets. Please note the above document was generated using voice recognition software. It may contain grammatical, syntax or spelling errors.Any formal questions or concerns about the content, text or information contained within the body of this dictation should be directly addressed to the provider for clarification. History of Present Illness Attending Physician: Vidhi Gutierrez MD History of Present Illness Chief Complaint: dyspnea Primary Care Provider: [facility] 70yo male with h/o CHF/ischemic cardiomyopathy, CAD s/p multiple MIs with stents, AICD status, and COVID 19 in 05/2020 - presents from [facility] with worsening dyspnea x 2 months, and especially worse in the last 3 weeks. He has noted swelling in his abdomen and feet over the last 2 weeks. He has gained significant weight gain - 165 pounds to 189 pounds over 4-6 months. He had significant PND and orthopnea last night. He went to the [facility] this morning about 8am and was given IV lasix 80mg at that time. He also had oral lasix 40mg (usual dose) this am. He has had copious urine output since this am following the lasix, and does feel better. No cough. Appetite has been normal. 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 Records show he did see Dr Hernandez a few weeks ago in EP clinic for device interrogation. I ( William Eaton MD ) got a call for consult port insertion for chemotherapy, I reviewed pt's H/P, labs, CT scan with pt, Allergies Allergy/AdvReac Type Severity Reaction Status Date / Time No Known Allergies Allergy Verified 10/28/20 10:50 Home Medications Medication Instructions Recorded Confirmed Type amiodarone 200 mg tablet 200 mg PO DAILY 09/22/20 10/28/20 History atorvastatin 80 mg tablet 80 mg PO DAILY 09/22/20 10/28/20 History ciclesonide 160 mcg/actuation 1 puff INHALATION Q12H 09/22/20 10/28/20 History aerosol inhaler digoxin 125 mcg (0.125 mg) tablet 125 mcg PO DAILY 09/22/20 10/28/20 History furosemide 40 mg tablet 40 mg PO BID 09/22/20 10/28/20 History levalbuterol tartrate 45 2 inh INHALATION Q6H 09/22/20 10/28/20 History mcg/actuation aerosol inhaler lisinopril 10 mg tablet 10 mg PO DAILY 09/22/20 10/28/20 History metoprolol tartrate 25 mg tablet 25 mg PO BID 09/22/20 10/28/20 History nortriptyline 50 mg capsule 50 mg PO HS 09/22/20 10/28/20 History spironolactone 25 mg tablet 25 mg PO DAILY 09/22/20 10/28/20 History warfarin 2 mg tablet 2 mg PO HS 09/22/20 10/28/20 History docusate sodium 100 mg tablet 100 mg PO DAILY 09/30/20 10/28/20 History insulin regular human [Novolin R 1 sliding scale dose SUBCUT 10/28/20 10/28/20 History Regular U-100 Insuln] USEASDIRECTD Past Med/Surg History Medical History Atrial fibrillation Automatic implantable cardioverter-defibrillator in situ Medtronic single-chamber. Implanted 2012 COPD (chronic obstructive pulmonary disease) Coronary artery disease Ischemic cardiomyopathy Mixed hyperlipidemia Type 2 diabetes mellitus dx 2020 Surgical History History of coronary artery stent placement Family History Uncle Myocardial infarction Father Myocardial infarction Mother Breast cancer Cervical cancer Social History Smoking Status: Former smoker Age Quit Using Tobacco: 66; packs per day: 1; Cigarettes Per Day: 1 PPD; Smoking End Date: 4 years ago quit for the most recent time.; Second Hand Exposure: No; Do You Dip or Chew Tobacco: No; Tobacco Cessation Education Requested by Patient: No Hx Alcohol Use: Yes Alcohol type: hard liquor Alcohol type Comment: in the past before mcc Hx Substance Use: Yes Non-Prescribed Medications: Marijuana Last Used Substance: Days (ago) Last Used Substance Other:: 4+ years ago last use. Preferred Language: Yoruba Communication Ability: Effective Document Restorer Required: No Beliefs That Will Affect Care: None marital status: Current Living Situation: Other Current Living Situation Comment: [facility] [place]. 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 How many Children do You have: 3 How many Children do You have Comment: 1 Other Information That Helps Us Care for You: No Feels Safe at Home: Yes Safety Concerns: Feels Safe At This Time Assistive Devices: None Review of Systems Constitutional: + fatigue and + weight gain; no fever and no anorexia Eyes: + worsening vision (blurry ) Ear, Nose, Mouth, Throat: no dysphagia Respiratory: + dyspnea on exertion; no cough Cardiovascular: + chest pain (last episode 1 month ago ), + orthopnea, + paroxysmal nocturnal dyspnea and + edema Gastrointestinal: + bloating, + nausea (for 2 weeks ) and + diarrhea/loose stools (intermittent ); no vomiting Genitourinary: no difficulty urinating Musculoskeletal: no back pain and no neck pain Integumentary: + rash (athletes foot ) Neurologic: + paresthesia (neuropathy of feet ) Psychiatric: no depression Endocrine: BSGs high - 200-400 Hematologic / Lymphatic: no easy bleeding Allergies Allergy/AdvReac Type Severity Reaction Status Date / Time No Known Allergies Allergy Verified 10/28/20 10:50 Home Medications Medication Instructions Recorded Confirmed Type amiodarone 200 mg tablet 200 mg PO DAILY 09/22/20 10/28/20 History atorvastatin 80 mg tablet 80 mg PO DAILY 09/22/20 10/28/20 History ciclesonide 160 mcg/actuation 1 puff INHALATION Q12H 09/22/20 10/28/20 History aerosol inhaler digoxin 125 mcg (0.125 mg) tablet 125 mcg PO DAILY 09/22/20 10/28/20 History furosemide 40 mg tablet 40 mg PO BID 09/22/20 10/28/20 History levalbuterol tartrate 45 2 inh INHALATION Q6H 09/22/20 10/28/20 History mcg/actuation aerosol inhaler lisinopril 10 mg tablet 10 mg PO DAILY 09/22/20 10/28/20 History metoprolol tartrate 25 mg tablet 25 mg PO BID 09/22/20 10/28/20 History nortriptyline 50 mg capsule 50 mg PO HS 09/22/20 10/28/20 History spironolactone 25 mg tablet 25 mg PO DAILY 09/22/20 10/28/20 History warfarin 2 mg tablet 2 mg PO HS 09/22/20 10/28/20 History docusate sodium 100 mg tablet 100 mg PO DAILY 09/30/20 10/28/20 History insulin regular human [Novolin R 1 sliding scale dose SUBCUT 10/28/20 10/28/20 History Regular U-100 Insuln] USEASDIRECTD Patient History Medical History (Updated 10/29/20 @ 22:22 by Vidhi Gutierrez MD) Atrial fibrillation Automatic implantable cardioverter-defibrillator in situ Medtronic single-chamber. Implanted 2012 CKD (chronic kidney disease) stage 3, GFR 30-59 ml/min COPD (chronic obstructive pulmonary disease) Coronary artery disease Ischemic cardiomyopathy Mixed hyperlipidemia Type 2 diabetes mellitus dx 2020 Surgical History History of coronary artery stent placement Family History Uncle Myocardial infarction Father Myocardial infarction Mother Breast cancer Cervical cancer Social History Smoking Status: Former smoker Age Quit Using Tobacco: 66; packs per day: 1; Cigarettes Per Day: 1 PPD; Smoking End Date: 4 years ago quit for the most recent time.; Second Hand Exposure: No; Do You Dip or Chew Tobacco: No; Tobacco Cessation Education Requested by Patient: No Hx Alcohol Use: Yes Alcohol type: hard liquor Alcohol type Comment: in the past before mcc Hx Substance Use: Yes Non-Prescribed Medications: Marijuana Last Used Substance: Days (ago) Last Used Substance Other:: 4+ years ago last use. Preferred Language: Yoruba Communication Ability: Effective Document Restorer Required: No Beliefs That Will Affect Care: None marital status: Current Living Situation: Other Current Living Situation Comment: [facility] [place]. 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 How many Children do You have: 3 How many Children do You have Comment: 1 Other Information That Helps Us Care for You: No Feels Safe at Home: Yes Safety Concerns: Feels Safe At This Time Assistive Devices: None Physical Exam Constitutional: WD/WN, vitals as above well nourished Eyes: PERRL, conjunctivae normal, anicteric sclerae ENMT: external ear and nose normal, oropharynx normal Neck: trachea midline, no thyromegaly Respiratory: normal respiratory effort, lungs clear to auscultation Cardiovascular: Rate/Rhythm: + irregularly irregular Gastrointestinal (Abdomen): normal bowel sounds, soft, nontender, no hepatosplenomegaly Musculoskeletal: no cyanosis or clubbing, extremities motor strength 5/5 Skin: no rashes, warm and dry Neurologic: awake Psychiatric: Orientation: alert and oriented x 3 Results & Data ([facility]) Vital Signs (Past 12 Hours) Vital Signs Temp Pulse Pulse Resp BP BP Pulse Ox 10/30/20 11:04 36.3 C L 66 18 136/79 94 10/30/20 10:31 36.3 C L 66 18 130/82 94 10/30/20 10:02 36.3 C L 75 18 126/78 91 10/30/20 09:39 36.9 C 76 20 137/77 96 10/30/20 09:17 80 16 123/95 95 10/30/20 09:13 77 16 130/85 95 10/30/20 09:08 70 16 138/79 95 10/30/20 09:03 70 16 148/85 H 98 10/30/20 08:58 82 16 153/93 H 96 10/30/20 08:55 78 20 154/93 H 95 10/30/20 08:50 86 20 145/94 H 92 10/30/20 08:45 82 20 151/86 H 92 10/30/20 08:40 77 20 163/90 H 97 10/30/20 08:35 87 20 150/95 H 97 10/30/20 08:30 72 20 162/81 H 97 10/30/20 08:25 68 20 142/88 H 97 10/30/20 07:28 72 10/30/20 07:13 69 18 95 10/30/20 06:50 36.4 C L 70 18 121/77 95 10/30/20 03:15 36.3 C L 67 18 160/73 H 96 10/30/20 00:30 63 63 18 95 Laboratory Results Abnormal lab results 10/29/20 10/29/20 10/29/20 Range/Units 15:54 16:32 20:25 WBC (4.8-10.8) K/uL RDW Std Deviation (36.4-46.3) fL RDW Coeff of Sajan (11.5-14.5) % MPV (7.4-10.4) fL Neut # (Auto) (1.4-6.5) K/uL Lymph # (Auto) (1.2-3.4) K/uL Immature Gran # (Auto) (0.00-0.02) K/uL PT 15.4 H (9.0-12.0) Seconds INR 1.6 H (0.9-1.1) Chloride (98-107) mmol/L BUN (7-18) mg/dl Creatinine (0.6-1.4) mg/dl BUN/Creatinine Ratio (10-20) Glucose (70-99) mg/dl POC Glucose 240 H 275 H (70-99) mg/dl Calcium (8.5-10.1) mg/dl Magnesium (1.8-2.4) mg/dl 10/30/20 10/30/20 10/30/20 Range/Units 07:27 07:27 07:27 WBC 11.96 H (4.8-10.8) K/uL RDW Std Deviation 56.2 H (36.4-46.3) fL RDW Coeff of Sajan 15.5 H (11.5-14.5) % MPV 11.6 H (7.4-10.4) fL Neut # (Auto) 10.54 H (1.4-6.5) K/uL Lymph # (Auto) 0.73 L (1.2-3.4) K/uL Immature Gran # (Auto) 0.09 H (0.00-0.02) K/uL PT 12.3 H (9.0-12.0) Seconds INR 1.2 H (0.9-1.1) Chloride 109 H (98-107) mmol/L BUN 34 H (7-18) mg/dl Creatinine 1.53 H (0.6-1.4) mg/dl BUN/Creatinine Ratio 22.2 H (10-20) Glucose 231 H (70-99) mg/dl POC Glucose (70-99) mg/dl Calcium 7.8 L (8.5-10.1) mg/dl Magnesium 2.8 H (1.8-2.4) mg/dl 10/30/20 10/30/20 Range/Units 07:37 11:31 WBC (4.8-10.8) K/uL RDW Std Deviation (36.4-46.3) fL RDW Coeff of Sajan (11.5-14.5) % MPV (7.4-10.4) fL Neut # (Auto) (1.4-6.5) K/uL Lymph # (Auto) (1.2-3.4) K/uL Immature Gran # (Auto) (0.00-0.02) K/uL PT (9.0-12.0) Seconds INR (0.9-1.1) Chloride (98-107) mmol/L BUN (7-18) mg/dl Creatinine (0.6-1.4) mg/dl BUN/Creatinine Ratio (10-20) Glucose (70-99) mg/dl POC Glucose 224 H 172 H (70-99) mg/dl Calcium (8.5-10.1) mg/dl Magnesium (1.8-2.4) mg/dl Diagnostic Findings CT chest diagnostic wo con CT DOSE: 346.07 mGy.cm CLINICAL HISTORY: 70 years-old Male with supraclavicular LAD; COPD; eval nodules. Chronic shortness of breath with pulmonary nodules. TECHNIQUE: Multiaxial CT images of the chest were performed without contrast. A dose lowering technique was utilized adhering to the principles of ALARA. COMPARISON: Chest radiograph of same day. FINDINGS: Unremarkable thyroid. Mild cardiomegaly. Extensive telida coronary artery calcifications. Left subclavian pacer. No thoracic aortic aneurysm. Partially imaged pathologically enlarged right supraclavicular lymph nodes measure up to 2.4 x 2.2 cm. Pathologically enlarged mediastinal lymph nodes include conglomerate subcarinal adenopathy measuring up to 6.1 x 3.3 x 5.2 cm. Right hilar adenopathy measures up to 3.3 x 1.9 cm. Pathologic lymph node measuring up to 9 mm is noted abutting the left pericardial border on image 228. Innumerable lesions throughout the liver compatible with hepatic metastasis measuring up to 4.4 cm within the right hepatic lobe. There are heterogeneous masses of the bilateral kidneys measuring up to 4.8 cm on the right. 4.6 cm mass of the abdominal left upper quadrant may be associated with the left kidney. Bilateral adrenal gland masses measuring up to 2.3 cm on the left suggest adrenal metastasis. Pathologic 1.9 x 1.5 cm lymph node adjacent to the proximal stomach on image 251. Gynecomastia. Healed chronic left-sided rib fractures. Degenerative changes of the shoulders and spine. Mild superior endplate compression deformities noted at the T1, T4-T6 without retropulsion. Small left and small to moderate right pleural effusions with bibasilar dependent consolidation. No pneumothorax. Mild emphysema. Pulmonary vascular congestion with mild intralobular septal thickening. Mass of the right lower lobe, 5.6 x 7.8 x 6.7 cm. There is associated opacification of the adjacent right lower lobe bronchi suggestive of tumor extension. Numerous satellite nodules of the right lower lobe measure up to 10 mm. Asymmetric groundglass opacities with intralobular septal thickening of the right lower lobe. Central airways are patent. IMPRESSION: 1. 7.8 cm mass of the right lower lobe suggests primary bronchogenic carcinoma and demonstrates apparent right lower lobe endobronchial component. 2. Cardiomegaly with pulmonary edema, small left and small to moderate right pleural effusions. 3. Extensive metastatic disease includes satellite right lower lobe pulmonary metastasis, right supraclavicular, mediastinal, hilar and upper abdominal adenopathy, hepatic, adrenal, and presumed renal metastasis. 4. Bibasilar atelectasis with findings suggestive of postobstructive pneumonitis of the right lower lobe. 5. Age-indeterminate thoracic compression deformities as above, most pronounced at T6. No suspicious bone lesions identified. 6. Additional findings as above.
[2020-10-30] MEDS: ASPIRIN 81 MG ECTAB PO SCH (12:41)
[2020-10-30] MEDS: DOCUSATE SODIUM 100 MG CAP PO SCH ×2 (12:42→20:40)
[2020-10-30 12:47] LABS: Eosinophil Body Fluid Man 0 %; Fluid Mono/Macrophage 16 %; Lymphocyte Body Fluid Man 3 %; Neutrophil Body Fluid Man 81 %
[2020-10-30] MEDS: UMECLIDINIUM/VILANTEROL 62.5/25MCG 7 PUFFS/INHALER INH SCH (14:42)
--- NOTE | 2020-10-30 15:39 | CT Scan Report ---
CT head/brain wo con CLINICAL HISTORY: Lung carcinoma. Evaluate for brain metastasis. COMPARISON STUDY: No previous studies for comparison. TECHNIQUE: Axial CT of the brain is performed from the vertex to the skull base. IV contrast was not administered for this examination. A dose lowering technique was utilized adhering to the principles of ALARA. CT DOSE: 773.57 mGy.cm FINDINGS: There is a 14 mm midline mass within the posterior parafalcine frontal region. There is no surroundin g vasogenic edema. This lesion may be extra-axial. A contrast-enhanced CT scan is recommended in foll ow-up, to help differentiate a meningioma for other pathologic entities. There is no acute hemorrhage . There is no midline shift. There is no CT evidence of acute cortical infarction. There are patchy white matter hypodensities likely on a small vessel basis. There is no evidence of pathologic ventricular dilatation. There is no evidence of acute sinusitis IMPRESSION: 1. 14 mm in midline hyperdense parafalcine frontal mass. There is no surrounding vasogenic edema. Thi s lesion may represent a meningioma. As an MRI is reportedly contraindicated, a CT scan with contrast is recommended in follow-up. 2. No additional mass lesions are visualized on this noncontrast study. ACT 112: Negative or not required by law. Electronically signed by: Garland Singh M.D. 10/30/2020 3:38 PM
--- NOTE | 2020-10-30 16:42 | Hospitalist Progress Note ---
Date of Service October 30, 2020 Assessment & Plan (1) Acute on chronic systolic heart failure: Presented with increasing shortness of breath, lower extremity swelling, abdominal distention, and weight gain Long history of chronic systolic CHF from ischemic cardiomyopathy; echocardiogram here indeed shows LVEF 30-35% with regional wall motion abnormalities and elevated RVSP at 50-60 mmHg Some of his shortness of breath also likely due to the large right lower lobe lung mass Received IV lasix 80mg IV x 1 and 40mg PO lasix x 1 at [facility] prior to transfer here. Has had COPIOUS diuresis since then. Feels much improved and lower extremity edema is down, crackles are resolved -Discontinue IV Lasix and convert to home Lasix 40 mg p.o. twice daily Daily BMP. Digoxin level 1.1 Cont BB - Dr Hernandez's note from September suggested changing metoprolol tartrate to succinate --did that for here, however after discussion with [facility] doctor, they do not have Toprol-XL on their formulary Cont lisinopril Cont aldactone. Strict I's and O's, daily weights, low-sodium diet, can increase fluid r estriction 1800 mL/day (2) Lung mass: Large at 7.8 cm in the right lower lobe with mediastinal lymphadenopathy, other pulmonary metastases, hepatic, adrenal, and renal metastases also with pleural effusions. Now status post EBUS on 10/30. Initial cytology positive for tumor burden as per pulmonology note Appreciate oncology consultation-recommends biopsy with large enough sample to send out appropriate testing Appreciate pulmonology consultation Patient wishes to pursue chemotherapy We will place surgical consult for port placement-plan for this tomorrow N.p.o. after midnight again We will need outpatient follow-up with oncology after results of lung biopsy are returned CT head with contrast performed to look for brain mets-there is likely a me ningioma plus bilateral ocular masses-Will need ophthalmology consultation after discharge (3) Atrial fibrillation: Remains in normal sinus rhythm here Dr Hernandez's note from September advised lowering amiodarone to 100mg from 200mg - have changed that this admission. Holding warfarin for procedures as above and will restart upon discharge-no brid ging necessary as he is in sinus rhythm Digoxin level okay at 1.1 Cont metoprolol. (4) Ischemic cardiomyopathy: h/o acute MIs on at least 2 occasions - perhaps more - leading to ischemic cardiomyopathy. Echo as above with reduced EF and regional wall motion abnormalities (5) Coronary artery disease: multiple NSTEMIs in past. cont BB, RODRIGUEZ, statin. uncertain why he is not on aspirin -started asa 81mg daily. (6) Automatic implantable cardioverter-defibrillator in situ: device interrogated in September [address] Hernandez. battery life is nearing end. will need referral back to Dr Hernandez to exchange this operatively. Has an appointment with cardiology next week (7) Supraclavicular lymphadenopathy: right. CT chest ordered due to significant smoking history and the lymph node -- lung cancer seen in RLL (very large mass). As above (8) Mixed hyperlipidemia: statin (9) COPD (chronic obstructive pulmonary disease): no exacerbation at this time cont inhalers (10) History of coronary artery stent placement: noted details uncertain however - old records not available (11) Type 2 diabetes mellitus: a1c >9% He was recently diagnosed with this and is not on any medication at the present Continues with significant hyperglycemia Tighten down NovoLog sliding scale again today Increase lantus again to 18 units twice daily (12) Hypoxia: Intermittent with pulse ox 87% on room air upon admission Currently stable on room air Diuresing (13) Hypokalemia: Replaced with oral potassium chloride and resolved Follow BMP in the morning (14) CKD (chronic kidney disease) stage 3, GFR 30-59 ml/min: Creatinine 1.4 on admission now 1.5 and stable, unclear what baseline is Follow BMP Renally dose medications Avoid nephrotoxins (15) Meningioma: As above No intervention needed at this time (16) Eye mass: As above, seen on CT Follow-up with ophthalmology as an outpatient (17) DVT prophylaxis: Coumadin being held for procedures Doppler of the lower extremities bilaterally is negative for DVT Disposition-continued stay, but can likely discharge back to the [facility] tomorrow after port placement if stable Care discussed with the [facility] physician, Dr. Castillo at length Admission and Anticipated Discharge Date Admission Date: October 28, 2020 Subjective Patient had his EBUS today and feels fine after that. I advised him that tumor was found on the biopsies and he is accepting of this. He states "well I have been through much worse than this in my life." Denies any chest pain or shortness of breath. Reports his leg swelling is significantly down. He is eating and drinking. He wishes he could drink more because he feels thirsty. Telemetry with normal sinus rhythm with rates in the 60s to 70s, PACs, PVCs. Review of Systems Review of Systems: All systems reviewed & are unremarkable except as noted in HPI & below Denies headache, no numbness or weakness anywhere Does report that his vision has been poor since he was diagnosed with diabetes- has blurry vision. Physical Exam Constitutional: WD/WN, vitals as above Eyes: + anicteric sclerae Neck: trachea midline, no thyromegaly Respiratory: normal respiratory effort Auscultation: + diminished lung sounds (At the right base); no crackles, no rhonchi and no wheezes Cardiovascular: Rate/Rhythm: regular rate and regular rhythm Heart Sounds: no murmur Extremities: no edema Chest (Breasts): Chest: normal inspection of chest Gastrointestinal (Abdomen): normal bowel sounds, soft, nontender, no hepatosplenomegaly Musculoskeletal: Extremities: extremities normal to inspection; no cyanosis and no clubbing Skin: no rashes, warm and dry Neurologic: moves all extremities and awake; no focal motor deficits Psychiatric: A+Ox3, euthymic affect Results & Data Results & Data ([facility]) Vital Signs (Past 12 Hours) Vital Signs Temp Pulse Pulse Resp BP BP Pulse Ox 10/30/20 16:16 36.5 C 76 18 126/74 93 10/30/20 14:00 80 10/30/20 13:21 76 20 95 10/30/20 11:04 36.3 C L 66 18 136/79 94 10/30/20 10:31 36.3 C L 66 18 130/82 94 10/30/20 10:02 36.3 C L 75 18 126/78 91 10/30/20 09:39 36.9 C 76 20 137/77 96 10/30/20 09:17 80 16 123/95 95 10/30/20 09:13 77 16 130/85 95 10/30/20 09:08 70 16 138/79 95 10/30/20 09:03 70 16 148/85 H 98 10/30/20 08:58 82 16 153/93 H 96 10/30/20 08:55 78 20 154/93 H 95 10/30/20 08:50 86 20 145/94 H 92 10/30/20 08:45 82 20 151/86 H 92 10/30/20 08:40 77 20 163/90 H 97 10/30/20 08:35 87 20 150/95 H 97 10/30/20 08:30 72 20 162/81 H 97 10/30/20 08:25 68 20 142/88 H 97 10/30/20 07:28 72 10/30/20 07:13 69 18 95 10/30/20 06:50 36.4 C L 70 18 121/77 95 Laboratory Results 10/30/20 10/30/20 10/30/20 Range/Units 20:24 16:49 11:31 WBC (4.8-10.8) K/uL RBC (4.7-6.1) M/uL Hgb (14.0-18.0) g/dL Hct (42-52) % MCV (80-100) fL MCH (25-34) pg MCHC (32-36) g/dL RDW Std Deviation (36.4-46.3) fL RDW Coeff of Sajan (11.5-14.5) % Plt Count (130-400) K/uL MPV (7.4-10.4) fL Immature Gran % (Auto) % Neut % (Auto) % Lymph % (Auto) % Leake % (Auto) % Eos % (Auto) % Baso % (Auto) % Neut # (Auto) (1.4-6.5) K/uL Lymph # (Auto) (1.2-3.4) K/uL Leake # (Auto) (0.11-0.59) K/uL Eos # (Auto) (0-0.5) K/uL Baso # (Auto) (0-0.2) K/uL Immature Gran # (Auto) (0.00-0.02) K/uL PT (9.0-12.0) Seconds INR (0.9-1.1) Sodium (136-145) mmol/L Potassium (3.5-5.1) mmol/L Chloride (98-107) mmol/L Carbon Dioxide (21-32) mmol/L Anion Gap (3-11) BUN (7-18) mg/dl Creatinine (0.6-1.4) mg/dl Est Cr Clr Drug Dosing ml/min Est GFR ( Amer) Est GFR (Non-Af Amer) BUN/Creatinine Ratio (10-20) Glucose (70-99) mg/dl POC Glucose 185 H 182 H 172 H (70-99) mg/dl Calcium (8.5-10.1) mg/dl Magnesium (1.8-2.4) mg/dl Fluid Neutrophils % % Fluid Lymphocytes % % Fluid Eosinophils % % Fl Monocyt/Macrophag % % Fluid Comment 10/30/20 10/30/20 10/30/20 Range/Units 09:00 07:37 07:27 WBC (4.8-10.8) K/uL RBC (4.7-6.1) M/uL Hgb (14.0-18.0) g/dL Hct (42-52) % MCV (80-100) fL MCH (25-34) pg MCHC (32-36) g/dL RDW Std Deviation (36.4-46.3) fL RDW Coeff of Sajan (11.5-14.5) % Plt Count (130-400) K/uL MPV (7.4-10.4) fL Immature Gran % (Auto) % Neut % (Auto) % Lymph % (Auto) % Leake % (Auto) % Eos % (Auto) % Baso % (Auto) % Neut # (Auto) (1.4-6.5) K/uL Lymph # (Auto) (1.2-3.4) K/uL Leake # (Auto) (0.11-0.59) K/uL Eos # (Auto) (0-0.5) K/uL Baso # (Auto) (0-0.2) K/uL Immature Gran # (Auto) (0.00-0.02) K/uL PT 12.3 H (9.0-12.0) Seconds INR 1.2 H (0.9-1.1) Sodium (136-145) mmol/L Potassium (3.5-5.1) mmol/L Chloride (98-107) mmol/L Carbon Dioxide (21-32) mmol/L Anion Gap (3-11) BUN (7-18) mg/dl Creatinine (0.6-1.4) mg/dl Est Cr Clr Drug Dosing ml/min Est GFR ( Amer) Est GFR (Non-Af Amer) BUN/Creatinine Ratio (10-20) Glucose (70-99) mg/dl POC Glucose 224 H (70-99) mg/dl Calcium (8.5-10.1) mg/dl Magnesium (1.8-2.4) mg/dl Fluid Neutrophils % 81 % Fluid Lymphocytes % 3 % Fluid Eosinophils % 0 % Fl Monocyt/Macrophag % 16 % Fluid Comment 10/30/20 10/30/20 Range/Units 07:27 07:27 WBC 11.96 H (4.8-10.8) K/uL RBC 4.71 (4.7-6.1) M/uL Hgb 15.8 (14.0-18.0) g/dL Hct 47.0 (42-52) % MCV 99.8 (80-100) fL MCH 33.5 (25-34) pg MCHC 33.6 (32-36) g/dL RDW Std Deviation 56.2 H (36.4-46.3) fL RDW Coeff of Sajan 15.5 H (11.5-14.5) % Plt Count 148 (130-400) K/uL MPV 11.6 H (7.4-10.4) fL Immature Gran % (Auto) 0.8 % Neut % (Auto) 88.1 % Lymph % (Auto) 6.1 % Leake % (Auto) 4.8 % Eos % (Auto) 0.1 % Baso % (Auto) 0.1 % Neut # (Auto) 10.54 H (1.4-6.5) K/uL Lymph # (Auto) 0.73 L (1.2-3.4) K/uL Leake # (Auto) 0.58 (0.11-0.59) K/uL Eos # (Auto) 0.01 (0-0.5) K/uL Baso # (Auto) 0.01 (0-0.2) K/uL Immature Gran # (Auto) 0.09 H (0.00-0.02) K/uL PT (9.0-12.0) Seconds INR (0.9-1.1) Sodium 145 (136-145) mmol/L Potassium 4.0 D (3.5-5.1) mmol/L Chloride 109 H (98-107) mmol/L Carbon Dioxide 31 (21-32) mmol/L Anion Gap 5.0 (3-11) BUN 34 H (7-18) mg/dl Creatinine 1.53 H (0.6-1.4) mg/dl Est Cr Clr Drug Dosing 47.1 ml/min Est GFR ( Amer) 52.6 Est GFR (Non-Af Amer) 45.4 BUN/Creatinine Ratio 22.2 H (10-20) Glucose 231 H (70-99) mg/dl POC Glucose (70-99) mg/dl Calcium 7.8 L (8.5-10.1) mg/dl Magnesium 2.8 H (1.8-2.4) mg/dl Fluid Neutrophils % % Fluid Lymphocytes % % Fluid Eosinophils % % Fl Monocyt/Macrophag % % Fluid Comment Diagnostic Findings CT OF THE BRAIN WITH IV CONTRAST CLINICAL HISTORY: Intracranial mass COMPARISON STUDY: October 30, 2020 TECHNIQUE: Axial CT of the brain is performed from the vertex to the skull base. IV contrast was administered for this examination. A dose lowering technique was utilized adhering to the principles of ALARA. The patient was scanned following administration of 93 cc of Optiray 320. CT DOSE: 537.48 mGy.cm DISCUSSION: Brain parenchyma: There is an intensely enhancing 16mm midline frontal parafalcine mass. This corresponds to the hyperdense lesion described on the prior noncontrast study. The appearance is typical of a meningioma. There is no surrounding vasogenic edema. There is no hydrocephalus. The dural venous sinuses appear patent as visualized. Calvarium: Unremarkable. Sinuses and mastoids: The imaged paranasal sinuses are clear. The mastoid air cells are well pneumatized. Orbits: There is a 1 cm enhancing mass involving the posterior aspect of the right globe. There is an equivocal tiny enhancing focus involving the posterior aspect of the left globe. Ophthalmology consultation is recommended in follow- up. IMPRESSION: [ 1. Intensely enhancing 16 mm midline frontal parafalcine mass, likely extra- axial. The appearance is typical of a meningioma. 2. 1 cm enhancing mass involving the posterior aspect of the right globe. Equivocal tiny enhancing mass involving the posterior aspect of the left globe. Ophthalmology consultation is recommended in follow-up. PG Care Time/CCT Total # of Minutes Spent Total Time Spent with Patient: Total time spent is greater than 50% in coordination of care (as documented) at patient's floor/unit and/or counseling patient: Coding Level of Care Code 98371 Subseq Hosp Care Lvl 3 Diagnoses Acute on chronic systolic heart failure I50.23 Lung mass R91.8 Atrial fibrillation I48.91 Ischemic cardiomyopathy I25.5 Coronary artery disease I25.10 Automatic implantable cardioverter-defibrillator in situ Z95.810 Supraclavicular lymphadenopathy R59.0 Mixed hyperlipidemia E78.2 COPD (chronic obstructive pulmonary disease) J44.9 History of coronary artery stent placement Z95.5 Type 2 diabetes mellitus E11.9 Hypoxia R09.02 Hypokalemia E87.6 CKD (chronic kidney disease) stage 3, GFR 30-59 ml/min N18.30 Meningioma D32.9 Eye mass H57.89 DVT prophylaxis Z29.9
[2020-10-30] MEDS ORDERED: OPTIRAY 320 100ml IV ONE (17:08)
--- NOTE | 2020-10-30 17:25 | CT Scan Report ---
CT OF THE BRAIN WITH IV CONTRAST CLINICAL HISTORY: Intracranial mass COMPARISON STUDY: October 30, 2020 TECHNIQUE: Axial CT of the brain is performed from the vertex to the skull base. IV contrast was ad ministered for this examination. A dose lowering technique was utilized adhering to the principles o f ALARA. The patient was scanned following administration of 93 cc of Optiray 320. CT DOSE: 537.48 mGy.cm DISCUSSION: Brain parenchyma: There is an intensely enhancing 16mm midline frontal parafalcine mass. This corresp onds to the hyperdense lesion described on the prior noncontrast study. The appearance is typical of a meningioma. There is no surrounding vasogenic edema. There is no hydrocephalus. The dural venous sinuses appear patent as visualized. Calvarium: Unremarkable. Sinuses and mastoids: The imaged paranasal sinuses are clear. The mastoid air cells are well pneumati zed. Orbits: There is a 1 cm enhancing mass involving the posterior aspect of the right globe. There is an equivocal tiny enhancing focus involving the posterior aspect of the left globe. Ophthalmology consu ltation is recommended in follow-up. IMPRESSION: [ 1. Intensely enhancing 16 mm midline frontal parafalcine mass, likely extra-axial. The appearance is typical of a meningioma. 2. 1 cm enhancing mass involving the posterior aspect of the right globe. Equivocal tiny enhancing ma ss involving the posterior aspect of the left globe. Ophthalmology consultation is recommended in fol low-up. ACT 112: Negative or not required by law. Electronically signed by: Garland Singh M.D. 10/30/2020 5:24 PM
--- NOTE | 2020-10-30 18:05 | Anesthesiology Consultation ---
Date of Service October 30, 2020 Assessment & Plan Chart Review Chart Review: Acceptable Risk for Surgery and Patient NOT seen in Pre Admission Testing History Surgery Operation Date: 10/30/20 07:00 Proposed Procedures p Endobronchial Ultrasound (EBUS) - Jake Josue MD Operation Date: 10/31/20 09:25 Proposed Procedures p Infusaport Insertion - William Eaton MD Height/Weight Height: 5 ft 8 in Weight: 82.7 kg Allergies Allergy/AdvReac Type Severity Reaction Status Date / Time No Known Allergies Allergy Verified 10/28/20 10:50 Medications Home Medications Medication Instructions Recorded Confirmed Last Taken amiodarone 200 mg tablet 200 mg PO DAILY 09/22/20 10/28/20 10/27/20 atorvastatin 80 mg tablet 80 mg PO DAILY 09/22/20 10/28/20 10/27/20 ciclesonide 160 mcg/actuation 1 puff INHALATION Q12H 09/22/20 10/28/20 Unknown aerosol inhaler digoxin 125 mcg (0.125 mg) tablet 125 mcg PO DAILY 09/22/20 10/28/20 10/27/20 furosemide 40 mg tablet 40 mg PO BID 09/22/20 10/28/20 10/27/20 levalbuterol tartrate 45 2 inh INHALATION Q6H 09/22/20 10/28/20 Unknown mcg/actuation aerosol inhaler lisinopril 10 mg tablet 10 mg PO DAILY 09/22/20 10/28/20 10/27/20 metoprolol tartrate 25 mg tablet 25 mg PO BID 09/22/20 10/28/20 10/27/20 nortriptyline 50 mg capsule 50 mg PO HS 09/22/20 10/28/20 10/27/20 spironolactone 25 mg tablet 25 mg PO DAILY 09/22/20 10/28/20 10/27/20 warfarin 2 mg tablet 2 mg PO HS 09/22/20 10/28/20 10/27/20 docusate sodium 100 mg tablet 100 mg PO DAILY 09/30/20 10/28/20 10/27/20 insulin regular human [Novolin R 1 sliding scale dose SUBCUT 10/28/20 10/28/20 10/28/20 Regular U-100 Insuln] USEASDIRECTD Active Medications Generic Name Dose Route Start Last Admin Trade Name Freq PRN Reason Stop Dose Admin Amiodarone HCl 100 mg 10/29/20 09:00 10/30/20 07:29 Amiodarone 200 Mg Tab PO 11/28/20 08:59 100 mg DAILY SEVERIANO Administration Aspirin 81 mg 10/29/20 09:00 10/30/20 12:41 Aspirin 81 Mg Ectab PO 11/28/20 08:59 81 mg QAM SEVERIANO Administration Atorvastatin Calcium 80 mg 10/29/20 09:00 10/30/20 07:30 Atorvastatin 40 Mg Tab PO 11/28/20 08:59 80 mg DAILY SEVERIANO Administration Digoxin 0.125 mg 10/29/20 09:00 10/30/20 07:28 Digoxin 0.125 Mg Tab PO 11/28/20 08:59 0.125 mg DAILY SEVERIANO Administration Docusate Sodium 100 mg 10/28/20 21:00 10/30/20 12:42 Docusate Sodium 100 Mg Cap PO 11/27/20 20:59 100 mg BID SEVERIANO Administration Furosemide 40 mg/ Syringe 4 mls @ 4 mls/min 10/28/20 17:00 10/30/20 16:15 IV 10/30/20 19:00 4 mls/min BID17 SEVERIANO Administration Insulin Aspart 0 units 10/28/20 16:30 10/30/20 13:11 Insulin Aspart 100 Units/Ml 3 Ml Pen SC 11/27/20 16:29 5 units ACHS SEVERIANO Administration Levalbuterol HCl 2 puffs 10/28/20 19:00 10/30/20 13:21 Levalbuterol Tartrate 15 Gm Hfa.Aer.Ad INH 11/27/20 18:59 2 puffs Q6R SEVERIANO Administration Lisinopril 10 mg 10/29/20 09:00 10/30/20 07:30 Lisinopril 10 Mg Tab PO 11/28/20 08:59 10 mg DAILY SEVERIANO Administration Metoprolol Succinate 50 mg 10/30/20 09:00 10/30/20 07:28 Metoprolol Succ 50mg Ext Rel Tab PO 11/29/20 08:59 50 mg QAM SEVERIANO Administration Nortriptyline HCl 50 mg 10/28/20 21:00 10/29/20 20:39 Nortriptyline Hcl 25 Mg Cap PO 11/27/20 20:59 50 mg HS SEVERIANO Administration Spironolactone 25 mg 10/29/20 09:00 10/30/20 07:31 Spironolactone 25 Mg Tab PO 11/28/20 08:59 25 mg DAILY SEVERIANO Administration Umeclidinium/Vilanterol 1 puffs 10/30/20 11:30 10/30/20 14:42 Umeclidinium/Vilanterol 62.5/25mcg 7 Puffs/Inhaler INH 11/29/20 11:29 1 puffs DAILY SEVERIANO Administration NPO Date Last Intake of Fluids: 10/30/20 Time Last Intake of Fluids: 00:00 Last Intake of Fluids Comment: NPO since midnight, sips with medication Date Last Intake of Solids: 10/30/20 Time Last Intake of Solids: 00:00 Last Intake of Solids Comment: atleast since midnight Past Medical History Medical History Atrial fibrillation Automatic implantable cardioverter-defibrillator in situ Medtronic single-chamber. Implanted 2012 CKD (chronic kidney disease) stage 3, GFR 30-59 ml/min COPD (chronic obstructive pulmonary disease) Coronary artery disease Ischemic cardiomyopathy Mixed hyperlipidemia Type 2 diabetes mellitus dx 2020 Past Family History Family History Uncle Myocardial infarction Father Myocardial infarction Mother Breast cancer Cervical cancer Past Surgical History Surgical History History of coronary artery stent placement Social History Smoking Status: Former smoker tobacco type: cigarettes Smoking cigarettes per day: 1 PPD Do You Dip or Chew Tobacco: No Smoking End Date: 4 years ago quit for the most recent time. Hx Alcohol Use: Yes Alcohol type: hard liquor alcohol intake frequency: a few times a month Alcohol Intake Frequency Comment: hasn't had alcohol use in 4 years. Hx Substance Use: Yes substance use type: marijuana Last Used Substance: Days (ago) Last Used Substance Other:: 4+ years ago last use. Physical Exam Vital Signs Last Vital Signs Temp 36.5 C 10/30/20 16:16 Pulse 76 10/30/20 16:16 Resp 18 10/30/20 16:16 BP 126/74 10/30/20 16:16 Pulse Ox 93 10/30/20 16:16 Testing Laboratory Results 10/30/20 07:27 10/30/20 07:27 PT 12.3 Seconds (9.0-12.0) H 10/30/20 07:27 INR 1.2 (0.9-1.1) H 10/30/20 07:27 Hemoglobin A1c 9.3 % (4.5-5.6) H 10/28/20 10:01 10/30/20 09:00 Gram Stain - Final Ba Lavage,Right Lower Lobe 10/30/20 10/30/20 10/30/20 16:49 11:31 07:37 POC Glucose 182 H 172 H 224 H Echocardiogram Date: 10/29/20 EF: 30-35 LV Function: dysfunctional RWMA: + hypokinetic RVSP- 50-60
[2020-10-30] MEDS: INSULIN GLARGINE SOLOSTAR 100 UNITS/ML 3 ML PEN SC SCH (20:41)
[2020-10-30] MEDS: NORTRIPTYLINE HCL 25 MG CAP PO SCH (20:41)
[2020-10-31] MEDS: LEVALBUTEROL TARTRATE 15 GM HFA.AER.AD INH SCH ×3 (00:30→13:46)
[2020-10-31] MEDS: INSULIN ASPART 100 UNITS/ML 3 ML PEN SC SCH ×3 (06:34→17:39)
[2020-10-31] MEDS: AMIODARONE 200 MG TAB PO SCH (07:46)
[2020-10-31 07:47] LABS: Basophils # (auto) 0.01 K/uL (0-0.2); Basophils % (auto) 0.1 %; Eosinophils # (auto) 0.02 K/uL (0-0.5); Eosinophils % (auto) 0.2 %; Hematocrit (blood only) 44.9 % (42-52); Immature Granulocytes # (auto) 0.08 K/uL (0.00-0.02); Immature Granulocytes % (auto) 0.7 %; Lymphocytes # (auto) 0.75 K/uL (1.2-3.4); Lymphocytes % (auto) 6.8 %; Mean Corpuscular Hemoglobin 33.3 pg (25-34); Mean Corpuscular Hgb Conc 33.4 g/dL (32-36); Mean Corpuscular Volume 99.6 fL (80-100); Mean Platelet Volume 11.3 fL (7.4-10.4); Monocytes # (auto) 0.48 K/uL (0.11-0.59); Monocytes % (auto) 4.4 %; Neutrophils # (auto) 9.67 K/uL (1.4-6.5); Neutrophils % (auto) 87.8 %; Platelet Count 143 K/uL (130-400); RDW Coefficient of Variation 15.4 % (11.5-14.5); RDW Standard Deviation 55.9 fL (36.4-46.3); Red Blood Count 4.51 M/uL (4.7-6.1); White Blood Count 11.01 K/uL (4.8-10.8)
[2020-10-31] MEDS: ASPIRIN 81 MG ECTAB PO SCH (07:47)
[2020-10-31] MEDS: UMECLIDINIUM/VILANTEROL 62.5/25MCG 7 PUFFS/INHALER INH SCH (07:48)
[2020-10-31] MEDS: lisinopril 10 MG TAB PO SCH (07:49)
[2020-10-31] MEDS: ATORVASTATIN 40 MG TAB PO SCH (07:49)
[2020-10-31] MEDS: SPIRONOLACTONE 25 MG TAB PO SCH (07:49)
[2020-10-31] MEDS: DOCUSATE SODIUM 100 MG CAP PO SCH (07:50)
[2020-10-31] MEDS: FUROSEMIDE 40 MG TAB PO SCH ×2 (07:50→16:05)
[2020-10-31] MEDS: INSULIN GLARGINE SOLOSTAR 100 UNITS/ML 3 ML PEN SC SCH (07:50)
[2020-10-31] MEDS: METOPROLOL SUCC 50MG EXT REL TAB PO SCH (07:50)
[2020-10-31] MEDS: DIGOXIN 0.125 MG TAB PO SCH (07:50)
[2020-10-31 07:57] LABS: INR 1.1 (0.9-1.1); Prothrombin Time 10.9 Seconds (9.0-12.0)
[2020-10-31 08:22] LABS: BUN Creatinine Ratio 22.6 (10-20); Calcium 7.6 mg/dl (8.5-10.1); Creatinine Clr Calc Pharmacy 49.4 ml/min; Est GFR (African American) 55.7; Magnesium 2.8 mg/dl (1.8-2.4); Potassium 3.7 mmol/L (3.5-5.1)
[2020-10-31] MEDS ORDERED: ePHEDrine sulfate 50 MG/ML AMP IV PRN (08:25)
[2020-10-31] MEDS ORDERED: HYDROmorphone INJ 1 MG/ML SYRINGE IV PRN (08:25)
[2020-10-31] MEDS ORDERED: ONDANSETRON INJ 2 MG/ML 2 ML VIAL IV PRN (08:25)
[2020-10-31] MEDS ORDERED: fentaNYL citrate 100 MCG/2 ML VIAL IV PRN (08:25)
[2020-10-31] MEDS ORDERED: PHENYLEPHRINE 100MCG/ML 5ML SYR IV PRN (08:25)
[2020-10-31] MEDS ORDERED: MEPERIDINE HCL 25 MG/ML CARP/VIAL IV PRN (08:25)
[2020-10-31] MEDS ORDERED: LABETALOL HCL IV 5 MG/ML 20ML IV PRN (08:25)
[2020-10-31] MEDS ORDERED: ATROPINE SULFATE 0.1 MG/ML 10ML SYR IV PRN (08:25)
[2020-10-31] MEDS ORDERED: fentaNYL citrate 100 MCG/2 ML VIAL ONE (08:41)
[2020-10-31] MEDS ORDERED: MIDAZOLAM HCL 1 MG/ML 2ML VIAL ONE (08:41)
[2020-10-31] MEDS ORDERED: PROPOFOL IV EMULSION 10 MG/ML 20 ML VIAL IV ONE ×2 (08:41→10:10)
[2020-10-31] MEDS ORDERED: LIDOCAINE HCL 2% 2 ML VIAL/AMP(20MG/ML) INFIL ONE (08:41)
[2020-10-31] MEDS ORDERED: SUCCINYLCHOLINE 100MG/5ML SYR IV ONE ×8 (08:43)
--- NOTE | 2020-10-31 09:20 | History & Physical Bridge Note ---
Date of Service October 31, 2020 History & Physical Bridge Note I have examined the patient, reviewed the History & Physical and in the interval since the performance of the History & Physical I have noted the following changes of clinical significance: no changes noted Supervising Physician Co-Signing Physician Notes I saw and evaluated the patient with Yasmany bryan, and agree with findings and plan as documented in the note. Admitted with shortness of breath No family history of lung cancer. At the time of examination daughters were present in the room. Patient has actually gained weight in the last couple of months. Shortness of breath is improved after coming to the hospital. Denies any hemoptysis. Denies any chest pain. No headache, no blurry vision. He has been on warfarin for A. fib. His INR was 1.5 in the morning. Repeat INR later today was 1.6. I will give the patient 2.5 mg of IV vitamin K. Repeat PT/INR in the morning Constitutional: No acute distress HEENT: EOMI, PERRLA, right supraclavicular lymph node appreciated Respiratory system: Decreased air entry bilaterally, no wheeze, no rhonchi, positive crackles bilateral lower lobes CVS: S1-S2 positive, no murmurs or gallops, irregular, left-sided AICD Abdomen: Soft, nontender, nondistended, positive bowel sounds x4 Extremities: +2 pulses bilaterally radialis/ dorsalis pedis, no cyanosis, +2 pitting edema bilateral lower extremity Neuro: Awake alert oriented x3 Psych: Normal mood and affect G/U: No Bonilla Supraclavicular lymph node could be biopsied for diagnosis but unfortunately general surgery recommends CT surgeon we do not have CT surgery in the hospital. Patient does have pleural effusion bilateral this is mostly coming from CHF. It could be metastatic effusion as well. Diagnosis can be made from the pleural fluid but there would not be enough cells to get special markers. Plan would be to have EBUS tomorrow. N.p.o. post midnight. Hold on anticoagulation. Risk and benefits of the procedure explained to the patient in depth. Patient understands and wants to go ahead with the procedure. Consent signed, witnessed and put in the chart CT chest 10/28/2020 personally reviewed: Centrilobular and paraseptal emphysema appreciated bilaterally, bilateral pleural effusion more on the right side, mediastinal lymphadenopathy appreciated especially station 7, 10 R as well as right lower lobe mass. Overall prognosis of the patient is poor given the extent of the disease. Recommend MRI of the brain to rule out mets. Please note the above document was generated using voice recognition software. It may contain grammatical, syntax or spelling errors.Any formal questions or concerns about the content, text or information contained within the body of this dictation should be directly addressed to the provider for clarification.
[2020-10-31] MEDS ORDERED: BUPIVACAINE 0.5 % 5 MG/1 ML MPF 30ML VIAL ONE (09:31)
[2020-10-31] MEDS ORDERED: HEPARIN 100 UNIT/ML 5ML FLUSH ONE (09:31)
[2020-10-31] MEDS ORDERED: BACITRACIN OINT 15 GM TUBE ONE (09:31)
[2020-10-31] MEDS ORDERED: LIDOCAINE HCL 1% 20 ML VIAL ONE (09:32)
[2020-10-31] MEDS ORDERED: ceFAZolin 2000MG 2,000 MG/15 ML SYR IV SCH (09:45)
[2020-10-31] MEDS ORDERED: ONDANSETRON INJ 2 MG/ML 2 ML VIAL ONE (10:10)
--- NOTE | 2020-10-31 10:58 | Post Operative Brief Note ---
Immediate Post Op Note v1 Date of Surgery October 31, 2020 Pre & Post Diagnosis Operation Date: 10/30/20 07:00 Pre-Op Diagnosis: lymphadenopathy Post-Op Diagnosis: lymphadenopathy Operation Date: 10/31/20 09:25 Pre-Op Diagnosis: Lung mass Post-Op Diagnosis: Lung mass I identified the patient and participated in the time-out.: Yes Procedure Operation Date: 10/30/20 07:00 Actual Procedures p Endobronchial Ultrasound (EBUS)(Bilateral) - Jake Josue MD Operation Date: 10/31/20 09:25 Actual Procedures p Infusaport Insertion Right Internal Jugular Vein(Right) - William Eaton MD Surgeon William Eaton MD 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
--- NOTE | 2020-10-31 11:24 | XRay Report ---
XR chest 1V portable HISTORY: 70 years-old Male post-op infusaport status post placement of a right IJ Hdvraw-y-Blgy cath eter COMPARISON: Chest radiograph 10/30/2020 TECHNIQUE: Portable AP view of the chest FINDINGS: Status post placement of a right IJ Zlsewv-f-Qgaf catheter distal tip in the expected location of the right brachycephalic vein. No pneumothorax. Cardiac mediastinal and hilar silhouettes are unchanged. Left subclavian pacer/AICD. Improved aeration of the lung bases with decreased pulmonary edema. Trac e right pleural effusion with masslike opacity of the right lung base redemonstrated. Degenerative ch anges of the shoulders and spine. IMPRESSION: 1. Status post placement of a right IJ Pxglfh-l-Hknj catheter, distal tip terminating in the expected location of the brachiocephalic vein. No pneumothorax. 2. Right lower lobe mass redemonstrated. 3. Decreased pulmonary edema with improved aeration of the lung bases. ACT 112: Negative or not required by law. The above report was generated using voice recognition software. It may contain grammatical, syntax o r spelling errors. Electronically signed by: Herbie Pisano M.D. 10/31/2020 11:22 AM
[2020-10-31] MEDS ORDERED: NovoLIN-R INSULIN PER UNIT CHARGE SQ SCH (11:37)
--- NOTE | 2020-10-31 12:29 | Anesthesiology Progress Note ---
Date of Service October 31, 2020 Anesthesia Post Procedure Vital Signs Vital Signs: Temp Pulse Pulse Resp BP BP Pulse Ox 10/31/20 12:10 63 16 144/79 H 96 10/31/20 11:40 36.3 C L 685 H 16 132/71 98 10/31/20 11:25 36.3 C L 64 14 128/70 96 10/31/20 11:15 63 18 108/75 96 10/31/20 11:05 36.3 C L 66 18 117/71 96 10/31/20 09:23 36.5 C 68 18 140/83 93 10/31/20 07:29 68 18 95 10/31/20 07:00 36.7 C 68 18 123/77 94 10/31/20 00:30 84 16 86 L 10/30/20 19:57 36.4 C L 69 20 122/55 L 94 10/30/20 19:33 69 18 96 10/30/20 16:16 36.5 C 76 18 126/74 93 10/30/20 14:00 80 10/30/20 13:21 76 20 95 Transfer of Care Handoff Completed per policy Notes Mental Status: alert / awake / arousable Patient Amnestic to Procedure: Yes Nausea / Vomiting: adequately controlled Pain: adequately controlled Airway Patency, RR, SpO2: stable & adequate BP & HR: stable & adequate Hydration State: stable & adequate Anesthetic Complications: no major complications apparent and Pt Satisfied with anesthetic care
--- NOTE | 2020-10-31 13:07 | Operative Report (OR) ---
DATE OF OPERATION: 10/31/2020 PREOPERATIVE DIAGNOSIS: Lung mass. POSTOPERATIVE DIAGNOSIS: Lung mass. OPERATION: Insertion of tunneled port in the right internal jugular vein. SURGEON: William Eaton MD. ANESTHESIA: Conscious sedation plus local. ESTIMATED BLOOD LOSS: About 5 mL. FINDINGS: Patent right internal jugular vein. COMPLICATIONS: None. INDICATIONS FOR THE PROCEDURE: This is a 70-year-old gentleman who was admitted to the hospital for a lung mass and the patient is required a port insertion for possible chemotherapy. I did talk to the patient about the benefit, the risk, alternate procedure. I indicated the risks may include but not limited to such as bleeding, infection, blood clot, dysfunction of the catheter, and injury to other organs. The patient understands, he signed informed consent and I answered all questions. DETAILS OF PROCEDURE: After we identified the patient and verified the procedure, we brought the patient to the OR, put the patient in the supine position. The patient received SCD on bilateral legs to prevent DVT. Also, patient received 2 grams of Ancef IV for prophylactic antibiotic. The patient received conscious sedation by the anesthesiology. The right side of the neck and right upper chest was prepped and draped in routine sterile fashion after we put the patient in the Trendelenburg position. We used the ultrasound guide to puncture the right internal jugular vein, easy blood return, we passed the wire and removed the needle. Then we used the fluoro to confirm the wire located in the superior vena cava, then I injected local anesthesia by using 1% lidocaine mixed with 0.5% Marcaine on the right side of the neck and right upper chest wall. Then I made about a 2.5 cm incision on the right upper chest wall to create a pouch in the subcutaneous layer. Hemostasis was obtained. Then we passed the catheter from right upper chest to reach the right side of the neck, the end of the catheter connected to the port. Then, we used a sheath with dilator, passed the wire and removed the dilator with wire, leaving the sheath in. Then we passed the catheter through the sheath. Then we removed the sheath and the catheter in easily. Again, we used fluoro to confirm the catheter tip located at the junction between the right atrium and superior vena cava. Again, hemostasis was obtained. Then, I used a 2-0 Prolene, fixed the port on the chest wall in 3 points. Then I closed the subcutaneous layer by using 2-0 Vicryl continuous running, closed skin by using 4-0 Vicryl continuous running. Then we put the dressing on. The patient tolerated the procedure well. All instrument, needle and sponge count were correct x2 at the end of the case. The patient was transferred to recovery room in stable condition. After the procedure, I did talk to the patient about the OR finding and the procedure we did. Also, I gave the patient postop care instruction. The patient understands. I attest to the content of the Intraoperative Record and any orders documented therein. Any exceptions are noted below. ELO
--- NOTE | 2020-10-31 13:40 | Pulmonology Progress Note ---
Date of Service October 31, 2020 Assessment & Plan (1) Lung mass: Impression: 70-year-old male that is an inmate at [facility] correctional institution. Lifelong smoker until the long term system went tobacco free for years ago. 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 Patient presented yesterday for shortness of breath and was found to have a large mass at the right lower lobe on CT scan as well as vast and significant lymphadenopathy. No history of prior cancer personally but family history of various types of cancer. Patient no hemoptysis. Vital signs are stable. Recommendations: 1. Lung mass with associated lymphadenopathy: Patient has undergone bronchoscopy with biopsy. Preliminarily results reported as malignant but final path is not currently yet available. Based on imaging, it appears that the pat ient has advanced malignancy. I advised him that this is not likely curable but may be treatable. He asks multiple insightful questions which I deferred to medical oncology. Would recommend palliative care consultation. Ideally the patient would need a PET scan in the outpatient setting although it is unclear if this can be completed. MRI of the brain with contrast also recommended to complete staging. 2. COPD: Lifelong smoker with greater than [id number] history. Quit smoking 4 years ago. Oxygenating well on room air. Outpatient medications include ciclesonide every 12 hours (ICS) leave albuterol every 6 hours (PAULETTE). Inpatient meds were started were Arnuity Ellipta daily (ICS) and levalbuterol (PAULETTE) every 6 hours scheduled. No PFTs are available for review. Maintain SaO2 between 88 and 92%. 3. Hemoptysis: Not uncommon post procedure. No intervention needed currently. We will sign off at this point time. Additional management per medical o ncology. (2) LAD (lymphadenopathy), mediastinal: (3) Supraclavicular lymphadenopathy: (4) COPD (chronic obstructive pulmonary disease): (5) Acute on chronic systolic heart failure: (6) Ischemic cardiomyopathy: (7) Atrial fibrillation: (8) Coronary artery disease: (9) Automatic implantable cardioverter-defibrillator in situ: (10) DVT prophylaxis: Admission and Anticipated Discharge Date Admission Date: October 28, 2020 Subjective Patient is status post port placement today. He is coughing and coughing up occasional flecks of dark red blood. No chest pain palpitations or breathing difficulties. Review of Systems Review of Systems: All systems reviewed & are unremarkable except as noted in HPI & below Physical Exam Physical Exam: GENERAL : No acute distress EYES: No icterus, gaze conjugate NOSE: No evidence of epistaxis MOUTH: No lesions or candidiasis NECK: Supple LUNGS: CTA B/L, no wheezes or rhonchi. Decreased breath sounds at the right base. Fine crackles at bilateral bases. SaO2 94% on room air HEART: Regular, rate controlled in the 60s ABDOMEN: Soft, NT, ND, BS Present EXTREMITIES: No LE edema, pedal pulses intact and equal bilaterally NEURO: A&OX3 Results & Data Results & Data ([facility]) Vital Signs (Past 12 Hours) Vital Signs Temp Pulse Resp BP BP Pulse Ox 10/31/20 12:40 70 16 137/82 94 10/31/20 12:10 63 16 144/79 H 96 10/31/20 11:40 36.3 C L 685 H 16 132/71 98 10/31/20 11:25 36.3 C L 64 14 128/70 96 10/31/20 11:15 63 18 108/75 96 10/31/20 11:05 36.3 C L 66 18 117/71 96 10/31/20 09:23 36.5 C 68 18 140/83 93 10/31/20 07:29 68 18 95 10/31/20 07:00 36.7 C 68 18 123/77 94 Laboratory Results 10/31/20 07:37 10/31/20 07:37 Pathology specimen is still pending. PG Care Time/CCT Total # of Minutes Spent Total Time Spent with Patient: Total time spent is greater than 50% in coordination of care (as documented) at patient's floor/unit and/or counseling p atient: Coding Level of Care Code 11346 Subseq Hosp Care Lvl 2 Diagnoses Lung mass R91.8 LAD (lymphadenopathy), mediastinal R59.0 Supraclavicular lymphadenopathy R59.0 COPD (chronic obstructive pulmonary disease) J44.9 Acute on chronic systolic heart failure I50.23 Ischemic cardiomyopathy I25.5 Atrial fibrillation I48.91 Coronary artery disease I25.10 Automatic implantable cardioverter-defibrillator in situ Z95.810 DVT prophylaxis Z29.9
[2020-10-31] MEDS ORDERED: WARFARIN SOD 2 MG TAB PO SCH (16:00)
--- NOTE | 2020-10-31 16:42 | Discharge Summary ---
Date of Service October 31, 2020 Admission HPI Per Admitting Provider 70yo male with h/o CHF/ischemic cardiomyopathy, CAD s/p multiple MIs with stents, AICD status, and COVID 19 in 05/2020 - presents from [facility] with worsening dyspnea x 2 months, and especially worse in the last 3 weeks. He has noted swelling in his abdomen and feet over the last 2 weeks. He has gained significant weight gain - 165 pounds to 189 pounds over 4-6 months. He had significant PND and orthopnea last night. He went to the [facility] this morning about 8am and was given IV lasix 80mg at that time. He also had oral lasix 40mg (usual dose) this am. He has had copious urine output since this am following the lasix, and does feel better. No cough. Appetite has been normal. 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 Records show he did see Dr Hernandez a few weeks ago in EP clinic for device interrogation. Principal Diagnosis Acute on chronic systolic CHF Metastatic lung cancer Discharge Exam Constitutional WD/WN, vitals as above Eyes + anicteric sclerae ENMT Ears: no hearing impairment Neck trachea midline, no thyromegaly Respiratory normal respiratory effort Auscultation: + diminished lung sounds (At the right base); no crackles, no rhonchi and no wheezes Cardiovascular Rate/Rhythm: regular rate and regular rhythm Heart Sounds: no murmur Vessels: no JVD Extremities: no edema Right neck with dressing in place status post Mediport insertion Right anterior chest wall with dressing in place with mild ecchymosis surrounding Chest (Breasts) Chest: + pacemaker (Left anterior chest wall) Gastrointestinal (Abdomen) normal bowel sounds, soft, nontender, no hepatosplenomegaly Musculoskeletal Extremities: extremities normal to inspection; no cyanosis and no clubbing Skin no rashes, warm and dry Neurologic moves all extremities and awake; no focal motor deficits Psychiatric A+Ox3, euthymic affect Discharge Data Allergies Allergy/AdvReac Type Severity Reaction Status Date / Time No Known Allergies Allergy Verified 10/28/20 10:50 Consultations 10/28/20 12:22 ED Decision to Admit Stat 10/28/20 22:10 Consult Oncology Routine Consult Pulmonology Routine 10/29/20 22:26 Consult General Surgery Routine Procedures Performed Operation Date: 10/30/20 07:00 Actual Procedures p Endobronchial Ultrasound (EBUS)(Bilateral) - Jake Josue MD Operation Date: 10/31/20 09:25 Actual Procedures p Infusaport Insertion Right Internal Jugular Vein(Right) - William Eaton MD Ordered Studies 10/28/20 16:08 CT chest diagnostic wo con Routine 10/29/20 US venous doppler LE BI Routine 10/30/20 14:36 CT head/brain wo con Routine 10/30/20 16:28 CT head/brain w con Routine 10/31/20 09:25 FL fluoro (infusaport) to 1 hr Routine Chest x-ray x3 Echocardiogram Diabetes Follow up Diabetes Follow-up Needed for HgbA1c >9% Hospital Course (1) Acute on chronic systolic heart failure: Presented with increasing shortness of breath, lower extremity swelling, abdominal distention, and weight gain Long history of chronic systolic CHF from ischemic cardiomyopathy; echocardiogram here indeed shows LVEF 30-35% with regional wall motion abnormalities and elevated RVSP at 50-60 mmHg Some of his shortness of breath also likely due to the large right lower lobe lung mass Received IV lasix 80mg IV x 1 and 40mg PO lasix x [address] [facility] prior to transfer here. Has had COPIOUS diuresis since then. Feels much improved and lower extremity edema is down, crackles are resolved -Discontinued IV Lasix and convert to home Lasix 40 mg p.o. twice daily Daily BMP. Digoxin level 1.1 Cont BB - Dr Hernandez's note from September suggested changing metoprolol tartrate to succinate --did that for here, however after discussion with longterm doctor, they do not have Toprol-XL on their formulary Cont lisinopril Cont aldactone. Strict I's and O's, daily weights, low-sodium diet, And would continue fluid restriction 1800 mL/day (2) Lung mass: Large at 7.8 cm in the right lower lobe with mediastinal lymphadenopathy, other pulmonary metastases, hepatic, adrenal, and renal metastases also with pleural effusions. Now status post EBUS on 10/30. Initial cytology positive for tumor burden as per pulmonology note Appreciate oncology consultation-recommends biopsy with large enough sample to send out appropriate testing Appreciate pulmonology consultation Patient wishes to pursue chemotherapy General surgeon placed port On 10/31 We will need outpatient follow-up with oncology after results of lung biopsy are returned CT head with contrast performed to look for brain mets-there is likely a meningioma plus bilateral ocular masses-Will need ophthalmology consultation after discharge (3) Atrial fibrillation: Remains in normal sinus rhythm here Dr Hernandez's note from September advised lowering amiodarone to 100mg from 200mg - have changed that this admission. held warfarin for procedures as above and will restart upon discharge-no bridging necessary as he is in sinus rhythm Digoxin level okay at 1.1 Cont metoprolol. (4) Ischemic cardiomyopathy: h/o acute MIs on at least 2 occasions - perhaps more - leading to ischemic cardiomyopathy. Echo as above with reduced EF and regional wall motion abnormalities (5) Coronary artery disease: multiple NSTEMIs in past. cont BB, RDORIGUEZ, statin. uncertain why he is not on aspirin -started asa 81mg daily. (6) Automatic implantable cardioverter-defibrillator in situ: device interrogated in September [address] Hernandez. battery life is nearing end. will need referral back to Dr Hernandez to exchange this operatively. Has an appointment with cardiology next week (7) Supraclavicular lymphadenopathy: right. CT chest ordered due to significant smoking history and the lymph node -- lung cancer seen in RLL (very large mass). As above (8) Mixed hyperlipidemia: statin (9) COPD (chronic obstructive pulmonary disease): no exacerbation at this time cont inhalers (10) History of coronary artery stent placement: noted details uncertain however - old records not available (11) Type 2 diabetes mellitus: a1c >9% He was recently diagnosed with this and is not on any medication at the present Continues with significant hyperglycemia Received Lantus and NovoLog here Recommend adding NPH 10 units twice daily at the longterm in addition to his usual NovoLog sliding scale (12) Hypoxia: Intermittent with pulse ox 87% on room air upon admission. At times requires 2 L nasal cannula but then is also on Room air at times. Continue supplemental O2 to keep pulse ox greater than 88% (13) Hypokalemia: Replaced with oral potassium chloride and resolved (14) CKD (chronic kidney disease) stage 3, GFR 30-59 ml/min: Creatinine 1.4 on admission now 1.5 and stable, unclear what baseline is Follow BMP As an outpatient Renally dose medications Avoid nephrotoxins (15) Meningioma: As above No intervention needed at this time (16) Eye mass: As above, seen on CT Follow-up with ophthalmology as an outpatient (17) DVT prophylaxis: Coumadin being held for procedures But restarted on 10/31 Doppler of the lower extremities bilaterally is negative for DVT Disposition-Discharge back to the longterm Care discussed with the longterm physician, Dr. Castillo at length Total Time Total Time Spent Total Time Spent (In Minutes): 35 minutes Total Time Includes: Examination of the Patient, Discharge Planning, Medication Reconciliation and Communication With Other Providers Discharge Plan Discharge Items Patient Disposition: [facility] Reason For Visit: ACUTE/CHRONIC SYSTOLIC CHF Discharge Diagnosis: Acute on chronic systolic CHF, metastatic lung cancer Condition on Discharge: Fair Activity: As commented below Bathing: Keep incision dry and May shower/bathe in 3 days Exercise/Sports: Gradually increase as tolerated Non-emergency contact: Primary Care Provider and Oncologist Call non-emergency contact if: you have any medication questions, your symptoms worsen and your pain is not controlled Follow-up/Referrals: Gabriel López DO [Physician] - (Follow-up within 2 weeks to discuss your biopsy results.) Yoni REYES [Primary Care Provider] - Diet: Carb Consistent or DM2, Heart Healthy and Low Sodium (2gm) Addtl Attending Provider Instructions: You will need follow-up with oncology in about 2 weeks to review the results of your biopsy and treatment for your cancer. You were also found to have 2 growths behind each of your eyeballs which will need follow-up with ophthalmology. Incidentally found was a meningioma of the head which does not require immediate follow-up at this time. You may need oxygen intermittently to keep your oxygen levels greater than 90%. Please limit fluid intake to no more than 1800 mL/day and follow low-sodium diet. Pending Studies at Discharge: Yes Stand-Alone Forms: [facility] [employer] Skilled Items Patient informed of condition?: Yes Communicable Disease: No Discharge Prognosis: Stable Lines: None Urinary Catheter: No Medications and DC Order Prescriptions: New amiodarone 200 mg Tablet 100 mg PO DAILY Qty: 15 RF: 0 acetaminophen 325 mg Tablet 650 mg PO Q4H PRN (Reason: pain) Qty: 30 RF: 0 aspirin 81 mg Tablet,Delayed Release (Dr/Ec) 81 mg PO QAM Qty: 30 RF: 0 Novolin N NPH U-100 Insulin 100 unit/mL suspension 10 unit subcut BID Qty: 10 RF: 0 Continued Alvesco 160 mcg/actuation HFA aerosol inhaler 1 puff inhalation Q12H RF: 0 atorvastatin 80 mg tablet 80 mg PO DAILY RF: 0 digoxin 125 mcg (0.125 mg) tablet 125 mcg PO DAILY RF: 0 furosemide 40 mg tablet 40 mg PO BID RF: 0 lisinopril 10 mg tablet 10 mg PO DAILY RF: 0 metoprolol tartrate 25 mg tablet 25 mg PO BID RF: 0 spironolactone 25 mg tablet 25 mg PO DAILY RF: 0 levalbuterol tartrate [Xopenex HFA] 45 mcg/actuation HFA aerosol inhaler 2 inh inhalation Q6H RF: 0 warfarin 2 mg tablet 2 mg PO HS RF: 0 nortriptyline 50 mg capsule 50 mg PO HS RF: 0 docusate sodium 100 mg tablet 100 mg PO DAILY RF: 0 Novolin R Regular U-100 Insuln 100 unit/mL Solution 1 sliding scale dose SUBCUT USEASDIRECTD RF: 0 Changed amiodarone 200 mg tablet 100 mg PO DAILY Qty: 0 RF: 0 Discharge Orders: Discharge Order (Routine); Ordered 10/31/20 Ordered By: Vidhi Patterson/Other Patient Handouts: Managing Type 2 Diabetes, Exercise to Manage Your Blood Sugar, 5 Steps for Eating Healthier, Understanding Type 2 Diabetes Admission Data Admit Date/Time: 10/28/20 13:30 Attending Provider: Vidhi Gutierrez Admit Provider: John Huerta Primary Care Provider: Yoni REYES Other Providers: John Huerta ; Gabriel López V. ; Oskar Leon ; William Eaton Coding Level of Care Code D/C Day Management >30 mins Diagnoses Acute on chronic systolic heart failure I50.23 Lung mass R91.8 Atrial fibrillation I48.91 Ischemic cardiomyopathy I25.5 Coronary artery disease I25.10 Automatic implantable cardioverter-defibrillator in situ Z95.810 Supraclavicular lymphadenopathy R59.0 Mixed hyperlipidemia E78.2 COPD (chronic obstructive pulmonary disease) J44.9 History of coronary artery stent placement Z95.5 Type 2 diabetes mellitus E11.9 Hypoxia R09.02 Hypokalemia E87.6 CKD (chronic kidney disease) stage 3, GFR 30-59 ml/min N18.30 Meningioma D32.9 Eye mass H57.89 DVT prophylaxis Z29.9
[2020-10-31] MEDS ORDERED: FUROSEMIDE 40 MG TAB PO SCH (21:00)
== END 2020-10-31 19:09 | DRG 264 ==
LOC: ED 09:39 → SUATTDRO 13:30 → 2W 13:30 → 3W 10-30 20:03